=== PATIENT | female | born 1980 | race Caucasian/White ===

== ENCOUNTER 2017-09-21 15:36 | Inpatient (IN) ==
--- OUTSIDE RECORDS SUMMARY | 2017-09-21 16:14 | External Medical Summary | Summary of Care ---
:[address] [facility] Address [facility] , Encounter [facility] Date(s): 03/22/17 - 03/22/17 [facility] [address] [place] [id number] [place] [address] [phone] Discharge Disposition: Discharge to Home or Self-care OP Attending Physician: Hung Black Admitting Physician: Hung Black Problem List Condition Effective Dates Status Health Status Informant Obesity, unspecified(Confirmed)1 Active (Confirmed) 04/03/07 - 01/01/08 Resolved (Confirmed) 09/12/04 - 06/12/05 Resolved (Confirmed) 04/06/99 - 01/04/00 Resolved (Confirmed) 07/07/03 - 09/2003 Resolved (Confirmed) 06/08/97 - 03/22/98 Resolved (Confirmed) 08/02/16 Active 1Added based on documentation of BMI=55.9. Allergies, Adverse Reactions, Alerts Substance Reaction Severity Status Lortab Active Medications acetaminophen Start Date: 03/22/17 Status: Orderedmultivitamin Start Date: 03/22/17 Status: Ordered
--- OUTSIDE RECORDS SUMMARY | 2017-09-21 16:14 | External Medical Summary | CCD ---
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
--- OUTSIDE RECORDS SUMMARY | 2017-09-21 16:14 | External Medical Summary | Summary of Care ---
:1980 Author Organization [facility] Address [facility] , Encounter [facility] Date(s): 03/22/17 - 03/22/17 [facility] [address] [place] [id number] [place] [address] [phone] Discharge Disposition: Discharge to Home or Self-care OP Attending Physician: Wilda Rich Admitting Physician: Wilda Rich Vital Signs Most recent to oldest [Reference Range]: 1 Temperature Oral [96.4-99.1 DegF] 98.7 DegF (03/22/17 3:11 PM) Heart Rate [60-100 bpm] 94 bpm (03/22/17 3:11 PM) Resp. Rate [14-20 BRMIN] 16 BRMIN (03/22/17 3:11 PM) Blood Pressure [90-140/60-90 mmHg] 113/61 mmHg (03/22/17 3:11 PM) Oxygen Therapy Room air (03/22/17 3:11 PM) Problem List Condition Effective Dates Status Health [...] Status: Orderedmultivitamin Start Date: 03/22/17 Status: Ordered Results Cytogenetics and Genetic Disease Most recent to oldest [Reference Range]: 1 Chromosome Study, Amniotic Fluid SEE REPORT *NA* (03/22/17 9:24 AM)
--- OUTSIDE RECORDS SUMMARY | 2017-09-21 16:14 | External Medical Summary | Summary of Care ---
:1980 Author Organization [facility] Address [facility] , Encounter [facility] Date(s): 03/22/17 - 03/22/17 [facility] [address] [place] [id number] [place] [address] [phone] Discharge Disposition: Discharge to Home or Self-care [...]
--- OUTSIDE RECORDS SUMMARY | 2017-09-21 16:14 | External Medical Summary | CCD ---
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
--- OUTSIDE RECORDS SUMMARY | 2017-09-21 16:14 | External Medical Summary | Continuity of Care Document ---
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 [facility] (disorder) and Clinics High risk Active 03/07/20 Problem 04/16/2017 Children&ap 17 os;s [facility] (finding) [facility] Maternal care Active 03/07/20 Problem 04/16/2017 Children&ap for fetus 17 os;s [facility] (disorder) [facility] Patient Active 07/20/20 Problem 04/16/2017 Children&ap currently 16 os;s [facility] (finding) and Clinics, [place] [facility] Obesity Active Problem 04/28/2017 Added based on [place] (disorder) documentation Medical of BMI=55.9. Centers Supervision of 04/21/2017 [place] elderly Medical multigravida, Centers third trimester 38 weeks 04/21/2017 [place] gestation of Medical Centers Other specified 04/28/2017 [place] diseases and Medical conditions Centers complicating , childbirth and the puerperium Elevated 04/28/2017 [place] blood-pressure Medical reading, Centers without diagnosis of hypertension Obesity 04/21/2017 [place] complicating Medical , Centers third trimester Morbid (severe) 04/28/2017 [place] obesity due to Medical excess calories Centers Body mass index 04/28/2017 [place] (BMI) 50-59.9 , Medical adult Centers Maternal care 04/28/2017 [facility] for low Medical transverse scar Centers from previous delivery Alteration in Active Problem 04/21/2017 Problem added [place] nutrition automatically Medical (finding) by system based Centers on documentation of Nausea Present, Bowel Sounds Absent, Malnutrition Screening, Unintentional Weight Change, and Pressure Ulcer Present Upon Admission. At risk of Active Problem 04/21/2017 [place] pressure sore Medical (finding) [facility] Pain (finding) Active Problem 04/21/2017 Problem added [place] automatically Medical by system based Centers on documentation of positive finding of pain. Acquired 04/28/2017 [place] absence of Medical other specified Centers parts of digestive tract 39 weeks 04/28/2017 [place] gestation of Medical Centers Maternal care 04/28/2017 [place] for breech Medical presentation, Centers not applicable or unspecified Anemia of the 04/28/2017 [place] puerperium Medical [facility] Allergy status 04/28/2017 [place] to narcotic Medical agent status Centers Obesity 04/28/2017 [place] complicating Medical childbirth Centers Single live 04/28/2017 [facility] [place] [facility] Labor and 04/28/2017 [place] delivery Medical complicated by [facility] cord around neck, without compression, not applicable or unspecified Maternal care 04/28/2017 [place] for (suspected) Medical Centers abnormality and damage, unspecified, not applicable or unspecified Bereavement, Active Problem 04/28/2017 [place] life event Medical (finding) [facility] Medications Medication Details Route Status Patient Ordering Order Source Instructions Provider Date multivitamin Active [place] [facility] Acetaminophen Active [facility] Acetaminophen
</ Active [facility] 325 MG / br>1 tab, Medical Oxycodone PO, Q4H, PRN [facility] Hydrochloride 5 for pain, # 40 MG Oral Tablet tab, 0 [Percocet Refill(s) 5/325] multivitamin,
</ Active [place] br>1 tab, Medical Chewed, Daily, [facility] Multivitamins # 30 tab, 5 oral tablet, Refill(s) chewable ibuprofen 800
</ Active [place] mg oral tablet br>=800 mg, Medical 1 tab, PO, Q8H, Centers # 30 tab, 5 Refill(s) docusate-senna
</ Active [facility] 50 mg-8.6 mg br>1 tab, Medical oral tablet PO, BID, # 60 Centers tab, 5 Refill(s) ferrous sulfate
</ Active [place] 325 mg oral br>1 tab, Medical tablet PO, Daily, # 30 [facility] tab, 5 Refill(s) Normal Saline
</ Active [place] 50 mL IVPB br>25 mL, Medical Flush injection, As Centers Needed, IVPush, PRN Flush, Start date 04/19/17 15:44:00 Percocet
</ Active [place] br>2 tab, Medical tab, Q4H, PO, Centers PRN Pain Severe (7-10), Start date 04/19/17 13:53:00<br& gt;</br>N otes: Not to exceed 4000 mg of acetaminophen TOTAL in 24 hours. TIME CRITICAL MED IF SCHEDULED magnesium
</ Active [facility] citrate br>300 mL, Medical liquid, ONCE, [facility] PO, PRN Constipation, Start date 04/20/17 9:00:00, morning of postop day 1 Simethicone
</ Active [facility] br>80 mg,=1 Medical tab, tablet, Centers chewable, Q6H, PO, PRN Gas/Gas pain, Start date 04/19/17 13:53:00 Docusate
</ Active [place] br>100 mg,=1 Medical cap, cap, BID, Centers PO, Start date 04/19/17 17:00:00, when tolerating regular diet Ibuprofen
</ Active [facility] br>800 mg,=1 Medical tab, tab, Q8H, Centers PO, Start date 04/19/17 17:00:00<br& gt;</br>N otes: SHOULD TAKE WITH FOOD TIME CRITICAL MED IF SCHEDULED [place] Judy
</ Active [facility] br>1 APL, Medical pad, As Needed, Centers Topical, PRN Hemorrhoids, Start date 04/19/17 13:53:00, May keep at bedside<br&g t;</br>No mateusz: Apply patient addressograph sticker to outside of container if no patient label is attached by pharmacy. zolpidem
</ Active [facility] br>5 mg,=1 Medical tab, tab, QHS, Centers PO, PRN Insomnia, Start date 04/19/17 13:53:00 lanolin topical
</ Active [place] br>1 APL, Medical ointment, As Centers Needed, Topical, PRN Other, See Notes, Start date 04/19/17 13:53:00, For nipple tenderness<b r></br&gt ;Notes: Found in supply pyxis at Magnesium
</ Active [facility] Hydroxide br>30 mL, Medical suspension, Centers Daily, PO, PRN Constipation/In digestion, Start date 04/19/17 13:53:00, 2,400 mg Allergies, Adverse Reactions, Alerts Substance Category Reaction Severity Reaction Status Date Comments Source type Reported Acetaminophen / Assertion Drug [facility] Hydrocodone allergy Medical Centers Immunizations Immunization Date Given Site Status Last Comments Source Updated MMR 04/22/2017 Left Upper MMR Tico [place] Arm (measles/mumps Medical /rubella) [facility] No data available No data [place] for this section available for Medical this section [facility] Results Order Name Results Value Reference Date Interpretation Comments Source Range Psychology Psychology 04/23 [place] Therapy Therapy /2016 Hospital Note Patient: SHEILA FREEMAN [place] Age: 37 years Sex: Female : 76 Associated Diagnoses: None Author: Tasneem Alcaraz Visit Information Referral source: Treatment team. Consultation Start Time: 04/23/17 15:00:00. Consultation End Time: 04/23/17 15:30:00. Objective Mrs. Freeman is a 37 y.o. female. Treatment team requested psychology consultation for loss, resulting in emotional distress and evading hospital discharge. Sister in law and Pt&apo s;s teenage daughter were in the room. Clinician provided emotional support. Clinician encouraged the expression of thoughts and feelings. Clinician educated Pt on grief process. Pt was tearful and gabriella ed baby pictures with clinician. Clinician suggested to follow up with [facility] in [place]. Pt seems to have strong family support system (, 4 children) . Pt become irritated when clinician addressed d ischarge. She stated, "I'm not ready".. "I will call my nurse when I'm ready." She told clinician to leave the room. Clinician provided feedback to staff and was informed that Pt had until 4: 30 PM for discharge. Clinician visited Pt for the second time and gently indicated timeframe for discharge in order to warn and prepare with the process of letting go of baby. Pt asked the clinician to leave the room and stated that she was "saying goodbye." Pt, daughter , and baby were sitting in bed embracing each other in preparation for saying goodbye. Clinician informed OB-DERMATOLOGICAL SURGEON residents and nurse. Assessment and Plan Plan: Diagnosis: Discharge Discharge 04/23 [place] Summary Summary /2016 [facility] Patient: SHEILA FREEMAN [facility]: [id number] [place] Age: 37 years Sex: Female : 76 Associated Diagnoses: None Author: Gregg Morales OB Discharge Summary Date of Admission: 04/19/17 Date of Discharge: 04/22/17 Admitting Diagnosis: 1. IUP at 39 0/7 () 2. h/o CS x4 3. 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 Class III obesity (BMI 59) 5. H/o wound infection in 1st c/s 6. History of transfusion x2 7. Multiple abdominal surgeries including incisional hernia x2 with mesh Discharge Diagnosis: 1. S/p rLTCS of viable female 2. As above. Consultations: Anesthesia, NICU Principal Procedure Preformed: rLTCS Brief Hospital Course: Ms Freeman is a 37 y.o. at 39 0/7 () who was admitted without complaint for scheduled rLTCS. FHT was reassuring and she was admitted for surgery. 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 P atient was GBS negative. Discussed recommendation to proceed with section for delivery due to h/o CS x4. Patient underwent a repeat LTCS on 04/19/17 without complications and EBL 800 ml. Infant had Apgars of 4 at 1 minute, 5 at 5 minutes, and 8 at 10 minutes , weighing 2810 g. Cord gases were arterial pH 7 .257, and venous pH 7.326. Please see delivery summary for full details. Patient's course was uncomplicated. On POD#1, she had a Hgb mg/dL 11.2. On POD#3, the infant . Also on POD#3 patient was meeting all goals; ambulating without dif ficulty, appropriate urine output, positive flatus, tolerating diet, minimal lochia, and pain was controlled. Patient desires depo provera for control, which she received prior to discharge. Incision was CDI without erythema/induration on the day of discharge. Patient was discharged to home on POD#3. T99.2, HR80, RR19, BP121/67 General: NAD CV: RRR Lungs: CTABL. Abd: S/N/ND BSX4, FF below umbilicus. Ext: neg c/c/e, Incision: c/d/i, horacio in place, provena overlying, lower edge rolling up (consider replacing). Discharge Instructions: 1) Pelvic Rest for 6 weeks; no sex, tampon use, or douching 2) No heavy lifting greater than baby or carseat for 4-6 weeks 3) Return to clinic in 1 week for incision check and 6 week visit 4) Return for temperature >100.4 degrees, vaginal bleeding greater than 2 maxi pads in 1 hour over 4 hours, abdominal pain, intractable nausea or vomiting, headaches that don't go away with saranya tment, spots in your vision, chest pain/shortness of breath or other concerns. 5) Keep all follow up appointments. Discharge Medications: 1) Pericolace 8.6-50 mg PO BID PRN constipation 2) Ibuprofen 600 mg PO q6hr PRN pain 3) PNV PO once daily 4) FeS04 325mg PO once daily 5) Percocet 5/325 mg PO q4hr PRN pain 6) Depo provera 150 mg IM q 3 months Gregg Morales MD PGY1 Staff: Dr. Heard Agree with above note. Ross Heard MD Inpatient Inpatient 04/23 [place] Progress Progress /2016 Hospital Note Note Patient: SHEILA FREEMAN [place] Age: 37 years Sex: Female : 76 Associated Diagnoses: None Author: Gregg Morales LTCS note S- Awake on entry. Laying in bed. Baby baby (Aviana) laying on chest. Baby on 04/22. Denies n/v/d/cp/sob/leg pain. Pain controlled. +UO. + Flatus, tolerating PO. +ambulation. Lochia wnl. O- T99.2, HR80, RR19, BP121/67 General: NAD CV: RRR Lungs: CTABL. Abd: S/N/ND BSX4, FF below umbilicus. Ext: neg c/c/e, Incision: c/d/i, horacio in place, provena overlying, lower edge rolling up (consider replacing). A/P: 1. POD #4, s/p LTCS-routine care, infant on hospice care (T18) 2. Contraception: s/p depo-provera 3. Hb.2 (11.8), stable 4. Rubella: Nonimmune, MMR PP 5. Blood type: A pos/Ab- 6. Class III obesity (BMI 59) -Consider bariatric referal -Advised weight loss 7. Consult psychology 8. Remove provena at incision check. Gregg Morales MD PGY1 Staff: Dr. Velasquez Rich Discharge Discharge 04/22 [place] Summary Summary /2016 Hospital Patient: SHEILA FREEMAN [place] Age: 37 years Sex: Female : 78 Associated Diagnoses: None Author: Gregg Morales OB Discharge Summary Date of Admission: 04/19/17 Date of Discharge: 04/22/17 Admitting Diagnosis: 1. IUP at 39 0/7 (d/18) 2. h/o CS x4 3. 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 Class III obesity (BMI 59) 5. H/o wound infection in 1st c/s 6. History of transfusion x2 7. Multiple abdominal surgeries including incisional hernia x2 with mesh Discharge Diagnosis: 1. S/p rLTCS of viable female 2. As above. Consultations: Anesthesia, NICU Principal Procedure Preformed: rLTCS Brief Hospital Course: Ms Freeman is a 37 y.o. at 39 0/7 (d/) who was admitted without complaint for scheduled rLTCS. FHT was reassuring and she was admitted for surgery. 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 P atient was GBS negative. Discussed recommendation to proceed with section for delivery due to h/o CS x4. Patient underwent a repeat LTCS on 5/17 without complications and EBL 800 ml. had Apgars of 4 at 1 minute, 5 at 5 minutes, and 8 at 10 minutes , weighing 2810 g. Cord gases were arterial pH 7 .257, and venous pH 7.326. Please see delivery summary for full details. Patient's course was uncomplicated. On POD#1, she had a Hgb mg/dL 11.2. On POD#3, the . Also on POD#3 patient was meeting all goals; ambulating without dif ficulty, appropriate urine output, positive flatus, tolerating diet, minimal lochia, and pain was controlled. Patient desires depo provera for control, which she received prior to discharge. Incision was CDI without erythema/induration on the day of discharge. Patient was discharged to home on POD#3. T99.2, HR80, RR19, BP121/67 General: NAD CV: RRR Lungs: CTABL. Abd: S/N/ND BSX4, FF below umbilicus. Ext: neg c/c/e, Incision: c/d/i, horacio in place, provena overlying, lower edge rolling up (consider replacing). Discharge Instructions: 1) Pelvic Rest for 6 weeks; no sex, tampon use, or douching 2) No heavy lifting greater than baby or carseat for 4-6 weeks 3) Return to clinic in 1 week for incision check and 6 week visit 4) Return for temperature >100.4 degrees, vaginal bleeding greater than 2 maxi pads in 1 hour over 4 hours, abdominal pain, intractable nausea or vomiting, headaches that don't go away with saranya tment, spots in your vision, chest pain/shortness of breath or other concerns. 5) Keep all follow up appointments. Discharge Medications: 1) Pericolace 8.6-50 mg PO BID PRN constipation 2) Ibuprofen 600 mg PO q6hr PRN pain 3) PNV PO once daily 4) FeS04 325mg PO once daily 5) Percocet 5/325 mg PO q4hr PRN pain 6) Depo provera 150 mg IM q 3 months Gregg Morales MD PGY1 Staff: Dr. Heard Inpatient Inpatient 04/22 [place] Progress Progress /2017 Hospital Note Note Patient: SHEILA FREEMAN [place] Age: 37 years Sex: Female : 76 Associated Diagnoses: None Author: Gregg Morales LTCS note S- Awake on entry. Laying in bed. Baby passed over night. Denies n/v/d/cp/ sob/leg pain. Pain controlled. +UO. + Flatus, tolerating PO. +ambulation. Lochia wnl. O- T98.7, HR92, RR20. BP146/74 General: NAD CV: RRR Lungs: CTABL. Abd: S/N/ND BSX4, FF below umbilicus. Ext: neg c/c/e, Incision: c/d/i, horacio in place, provena overlying A/P: 1. POD #3, s/p LTCS-routine care, infant on hospice care (T18) 2. Contraception: s/p depo-provera 3. Hb.2 (11.8), stable 4. Rubella: Nonimmune, MMR PP 5. Blood type: A pos/Ab- 6. Class III obesity (BMI 59) -Consider bariatric referal -Advised weight loss 7. Consult psychology 8. Remove provena at incision check. Gregg Morales MD PGY1 Staff: Dr. Heard Patient seen and examined and management discussed with resident team. she is in bed, patting baby, who is , and resting on her chest. Wound dressing with Prevena intact. Advised to wear tight fitting bra to decrease engorgement. appropriate grief. Ross Heard MD Inpatient Inpatient 04/21 [place] Progress Progress /2016 Hospital Note Note Patient: SHEILA FREEMAN [place] Age: 37 years Sex: Female : 78 Associated Diagnoses: None Author: Gregg Morales LTCS note S- Awake on entry. Had just showered. Denies n/v/d/cp/sob/leg pain. Pain controlled. +UO. + Flatus, tolerating PO. +ambulation. Lochia wnl. O- T97.8, HR91, RR22, BP125/73 General: NAD CV: RRR Lungs: CTABL. Abd: S/N/ND BSX4, FF below umbilicus. Ext: neg c/c/e, Incision: c/d/i, horacio in place, provena overlying A/P: 1. POD #2, s/p LTCS-routine care, demise 2/ T18 2. Contraception: s/p depo-provera 3. Hb.2 (11.8), stable 4. Rubella: Nonimmune, MMR PP 5. Blood type: A pos/Ab- 6. Class III obesity (BMI 59) -Consider bariatric referal -Advised weight loss 7. Consult psychology Gregg Morales MD PGY1 Staff: Dr. Eduard Chapa MD FACOG Attending TAFE LECTURER Anesthesia Anesthesia 04/20 [place] Note Note /2016 [facility] Patient: SHEILA FREEMAN [place] Age: 37 years Sex: Female : 78 Associated Diagnoses: None Author: Reji Lobo Review of Systems VS/Measurements Vital Signs 04/20/17 07:26 Temperature Oral 98.9 DegF Heart Rate 89 bpm Resp. Rate 16 BRMIN Systolic BP 100 mmHg Diastolic BP 53 mmHg LOW Mean Arterial Pressure 69 mmHg BP Site Right Arm Cuff Size Adult Large Cuff Oxygen Therapy Room air Assessment Airway Status Awake and Alert and able to participate in the interview. Pain Assessment Pain Score (0-10) 2. PONV No PONV. Summary Tolerating PO. No apparent anesthetic complications. Block Resolved - Ambulating without difficulty. Hematology Gran 10.8 1.4 - 04/20 [facility] 10^3/cmm 7.010 [facility] Inpatient Inpatient 04/20 [facility] Progress Progress /2016 Hospital Note Note Patient: SHEILA FREEMAN [place] Age: 37 years Sex: Female : 78 Associated Diagnoses: None Author: Gregg Morales LTCS note S- Pt holding baby in bed. Denies n/v/d/cp/sob/leg pain. Pain controlled. +UO. + Flatus, tolerating PO. +ambulation. Lochia wnl. O- Temperature 98.9 (08:17) Systolic Blood Pressure 100 (08:17) Diastolic Blood Pressure 53 (08:17) Pulse 89 (08:17) SpO2 No result Respiratory Rate 16 (08:17) General: NAD CV: RRR Lungs: CTABL. Abd: S/N/ND BSX4, FF below umbilicus. Ext: neg c/c/e, Incision: c/d/i, horacio in place, provena overlying A/P: 1. POD #1, s/p LTCS-routine care, demise 2/2 T18 2. Contraception: Considering depo-provera 3. Hb.2 (11.8), stable 4. Rubella: Unknown 5. Blood type: A pos/Ab- 6. class III obesity (BMI 59) -Consider bariatric referal -Advised weight loss Gregg Morales MD PGY1 Staff: Dr. Mayen _x_ I reviewed the records with the resident and agree and directed the plan of care at the time of the visit (Levels 1 to 3). Assessment/Plan: Agree with plan of care as above. Haja Mayen MD Error above: While the baby does have T18, there is no demise at this time. Baby living as off my exam at 14:00. Haja Mayen MD Chemistry GFR Non null >=60 04/19 [facility] -Amer mL/min/1. [place] [id number] Centers Urine U Protein 9.0 mg/dL 0.0 - 10.0 04/19 [facility] Chemistry /2017 Medical Centers Operative Operative 04/19 [place] Reports Reports /2016 Hospital Patient: SHEILA FREEMAN [place] Age: 37 years Sex: Female : 76 Associated Diagnoses: None Author: Claudia Carranza SECTION OPERATIVE REPORT Date of Operation: Preoperative Diagnosis: 1. IUP at 39 0/7 () 2. h/o CS x4 3. 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 Class III obesity (BMI 59) 5. H/o wound infection in 1st c/s 6. History of transfusion x2 7. Multiple abdominal surgeries including incisional hernia x2 with mesh Postoperative Diagnosis: 1. S/p rLTCS of viable female infant 2. As above. Procedure: Repeat low-transverse section Findings: 1. Viable female infant in complete breech presentation, sacrum anterior position with 'S and weight pending. 2. Blood cord gases: Arterial pH 7.25, and Venous pH 7.32. 3. Minimal adhesive disease involving the fasica and rectus muscles. Moderate adhesive disease in the vesicouterine pouch. Minimal adhesive disease involving the adnexa. Complications: None. EBL: 800ml IVF: 1300ml UOP: 200ml Anesthesia: Combined spinal/epidural Specimens: Placenta and cord. Surgeon: Claudia Carranza MD PGY3 1st Lining Cleaner: Dr Dinorah Clark Staff physician: Dr Ana Rich Condition: Stable to recovery room. Indications: Ms Freeman is a 37 y.o. at 39 0/7 (d) who was admitted without complaint for scheduled rLTCS. FHT was reassuring and she was admitted for surgery. [facility] in [facility] c/b AMA s/p abnormal anatomy screening and amniocentesis on 03/22 demonstrating T18, XX , multiple cardiac anomalies, class III obesity (BMI 59), hx of LTCS x4 with wound infection in 1st c/s, history of trans fusion x2. Patient was GBS negative. Discussed recommendation to proceed with section for delivery due to h/o CS x4. The risks/benefits/ alternatives were discussed with the patient including b ut not limited to pain, bleeding, infection, damage to surrounding organs, or damage to baby, risk of anesthesia, to mother. Patient verbalized clear understanding and requested to proceed with section for delivery. Description of Procedure: The patient was taken back to the operating room where a combined spinal/ epidural was placed and found to be adequate. A thompson catheter and SCDs were in place prior to the beginning of the procedure. FH T were monitored until prep time. Antibiotics were given per protocol. After anesthesia was found to be adequate, the patient was prepped and draped in normal fashion in the dorsal position with a leftward tilt. Time out was performed. A pfannenstiel skin incision was made with a scalpel beneath her prior scar and carried down to the underlying layer of the fascia. The fascia was incised in the midline and this incision was extended l aterally with Mackay scissors. Charles clamps x2 were used to elevate the superior edge of the fascial layer. The fascia was tented up and the rectus muscle was dissected from the overlying layer of the fa scia using blunt and sharp dissection. The Charles clamps were then moved to the inferior edge of the fascia, which was tented up and the underlying rectus muscles were dissected off using sharp and blun t dissection. The rectus muscles were in the midline and laterally retracted. Blunt dissection was then used to enter the peritoneum above the level of the bladder. The peritoneal incision was extended bilaterally in a blunt fashion. Peritoneal bands were taken down sharpley. Bladder blade was then inserted. Moderate adhesive disease was noted between the bladder and lower uterine segment, w hich was carefully dissected sharply. Uterine incision was then made with the scalpel in the lower uterine segment in a curvilinear fashion and extended in a cephalocaudad fashion manually. The breech w as found in a complete position. Feet were grasped and were elevated to and through the hysterotomy. Legs were fully delivered to the sacrum which was anterior. Towel then was used to hold the baby, and was delivered up to the scapulae. Each arm was then swept medially and delivered. Finally, via the MauriceauSmellieVeit maneuver, head was delivered atraumatically. The cord was clamped and cut a nd was passed off to awaiting pediatric team. Arterial and venous cord gases were collected. The placenta was delivered via manual extraction. Membranes were extracted with ringed forceps. The uterus was exteriorized and cleared of all clots and debris. The uterine incision was re-approximated with 0-vicryl in a running locked fashion for excellent hemostasis. Posterior of the uterus was cleared of all blood and clots with careful protection of the bowel underlying organs. Both tubes and ovaries appeared visually normal. The uterus was then returned to abdomen. The paracolic gutters wer e cleared of all clots and debris. The uterine incision was again visualized off tension and found to be hemostatic. Seprafilm was placed over the hysterotomy, and a second piece over the anterior porti on of the uterus. The underlying layer of the fascia and muscle bellies were examined and found to be hemostatic. The fascia was closed in a running fashion with 0-vicryl. Subcutaneous tissue was irriga andrés and found to be hemostatic and the skin was closed with horacio. Provena was then placed. The patient tolerated the procedure well. Sponge/lap/needle counts were correct x3. She was taken to the recovery room in stable condition. Dr Ana Rich was present for surgery. Claudia Carranza MD PGY3 Assessment Delivery Note Delivery staff Staff Surgeon: Reji Rich. INDUSTRIAL [employer] MANAGER/Peds: Present. Gestational Age: 39.0 weeks by dates. Internal Monitoring: No. Amnioinfusion: No. Induction / Augmentation: No. Pre-op Diagnosis Previous . Post-op Diagnosis Same as pre-op diagnosis. Procedure : Position -- Breech: complete, Anesthesia -- (epidural, spinal), See above. Findings Infant female: Delivery time: pending, Amniotic fluid clear, weight is pending, Apgars pending, Admitted to NICU, Cord blood gases obtained arterial, Nuchal cord x 2, injury/anomalies Yes, Abdominal wall defect. Placenta: manually extracted. Shoulder Dystocia: No. Estimated Blood Loss: 800 mL. Hemorrhage: No. Sponge/instrument/needle counts correct: Yes. Mom stable in recovery: Yes. I certify that I personally performed this procedure or that I was present and personally supervised the resident or fellow during the critical or rogers portions of this procedure. OP/Procedu OP/Procedure 04/19 [place] [facility] re Certificatio /2016 Hospital Certificat n Record Patient: SHEILA FREEMAN [place] ion Record Age: 37 years Sex: Female : 76 Associated Diagnoses: None Author: Claudia Carranza Assessment Operative/Procedure Certification Surgery Start Time Surgery start time: Times - Surgery Start . Pre-Op/Pre-Procedure Pre-Op Diagnosis: h/o CS x4. Scheduled Procedure: h/o CS x4. Procedure Notes Complications: None. Drain: None. Post-Op/Post-Procedure PostOp Diagnosis: h/o CS x4. PostOp Procedure: h/o CS x4. Findings: See full operative note. Wound Classification: Clean contaminated. Estimated Blood Loss: 800 mL. ASA Class: Class II. Anesthesia Type: regional. Specimens Removed: Placenta, cord blood, cord. Surgery/Procedure Staff Surgeon/Attending: Reji Rich. Resident/Fellow: Claudia Carranza 1st Lining Cleaner: Dinorah Clark Formal Report to be dictated by Claudia Carranza Blood Bank ABORH TYPE A POS 04/19 [place] Cumulativ /2016 [facility] Hematology MCV 81.0 FL 80.0 - 04/19 [facility] 100.0 [facility] Infectious HIV-1 Ag p24 Non-Reactive 04/19 [facility] Serology / Medical Molecular (04/19/17 8:52 AM) Centers Testing Anesthesia Anesthesia 04/19 [place] Note Note /2016 [facility] Patient: SHEILA FREEMAN [place] Age: 37 years Sex: Female : 76 Associated Diagnoses: None Author: Chicho Macias Preoperative Information Performing Pre-Op Personnel: Dinorah Hill Shomber, Tia, 04/19/17 06 :15:00, 04/19/17 09:47:00. Anesthesia Preop Information: Time patient last ate or drank: 04/18/17 23 :00:00, Location scheduled: [facility], Anesthesiologist scheduled: Chicho Macias, Date/ Time scheduled: 04/19/17 10:00:00. Scheduled Procedure: CS. Preoperative Diagnosis: Repeat C/S. Histories Problem List: Include past medical history All Problems Obesity, unspecified / ICD-10-CM E66.9 / Confirmed Added based on documentation of BMI=55.9. / SNOMED CT 114664633 / Confirmed Resolved: / SNOMED CT 345323925 Resolved: / SNOMED CT 217147861 Resolved: / SNOMED CT 967880695 Resolved: / SNOMED CT 496664925 Resolved: / SNOMED CT 309426746 Procedure history: No active procedure history items have been selected or recorded., GALLBLADDER REMOVAL CS X 4 Anesthesia History: Patient History: NAUSEA WITH PREVIOUS CS, Family History negative Social History: Alcohol use: Denies use, Tobacco use: Denies use, Drug use : Denies use Health Status Day of surgery: Medications taken day of surgery: None Current medications: (Selected) Documented Medications Documented acetaminophen: multivitamin : Allergies: Allergic Reactions (Selected) Severity Not Documented Lortab- No reactions were documented. VS/Measurements Bariatric Measurements : Bariatric View 04/16/17 10:46 Weight 172 kg Height 170 cm Body Mass Index 59.5 kg/m2 04/16/17 08:32 Weight 171.2 kg Height 170 cm Body Mass Index 59.2 kg/m2 , No qualifying data available Review of Systems Airway: Normal neck range of motion. Mallampati classification: III. Thyromental distance: >=3FB. Temporomandibular joint mobility: Good. Mouth: Teeth ( POOR DENTITION ). Respiratory: Negative. Obstructive Sleep Apnea: CONNOR Screening ( BMI > 35 ). Anesthesia Physical Exam: Lungs CTA, Non-labored respirations. Cardiovascular: Negative. Functional Capacity: >=4 METS. Anesthesia Physical Exam: Regular rhythm. Gastrointestinal/Hepatic: Reflux/Heartburn/Indigestion: Uncontrolled. Renal/Endocrine: Negative. Neuromuscular/Neurologic: Negative. Javed/ Oncology: Anemia. Obstetrics: 03/22/17 AMNIOCENTESIS. UC04/19/2017, Positive. : 5. Review / Management Results review Plan Anesthetic Preoperative Plan: Anesthesia: General, ETT, Epidural, and SAB. Consent: Anesthesia plan, risks and benefits discussed. Risks discussed but not limited to N/V, H/A, sore-throat, dental injury and other serious complication. See separate signed consent. Questions ans wered. Informed consent given. ( Consent given by ( patient ) ). [place] [employer]esthesiologists#(ASA) physical status classification : Class IV. Attestation: At 04/19/17 09:52:00 I reviewed and updated the patient& apos;s medical history, including anesthesia, drug and allergy history; and interviewed and examined the patient.. History History and 04/19 [place] and Physical /2016 [facility] Physical Patient: SHEILA FREEMAN [place] Age: 37 years Sex: Female : 76 Associated Diagnoses: None Author: Claudia Carranza History of Present Illness EDC: 04/26/17 HPI: Pt is a 37 y/o @ 39 0/7 () presents without complaint for scheduled repeat section. Denies ctx, LOF, VB, dysuria, N/V; +FM Denies harmon/ruq pain/scotoma. PNC in [facility] c/b AMA s/p abnormal anatomy screening and amniocentesis on 03/22 demonstrating T18, XX, multiple cardiac anomalies, class III obesity (BMI 59), hx of LTCS x4 with wound infection in 1st c/s, history of transfusion x2 PNL: A+/-, RNI, HIVNR, RPRNR, G/C neg, pap NIL, 1hr OGT 113, GBS neg PMH: Class III obesity, blood transfusion x 2 OBHx: -G1- 98, 41wks, 4252g, LTCS, patient had significant wound infection and received blood transfusion, pfannenstiel incision -G2- 00, 39wks, 4139g, LTCS, vertical midline incision, uncomplicated -G4- 05, 39wks, 4309. LTCS, vertical midline incision, uncomplicated -G5- 08, 39wk, 3572g, LTCS, vertical midline incision, uncomplicated -G6- current GynHx: - LMP , menarche 9, regular monthly menses, denies STDs , + history of abnormal pap in 2004, subsequently normal, last 2016 NIL/-HPV Soc: Denies alcohol, tobacco, ilicit drug use Fam: +DM II dad, no breast, uterine, ovarian, colon or pancreatic cancers. No bleeding or clotting disorders Meds: PNV, tylenol prn Allergies: lortab (rash, N/V) Vitals: 97.8, 102, 18, 151/78 Gen: NAD Heart: RRR Lungs: CTA b/l Neuro 2/4 DTRs, no clonus Abd: Morbidly obese, NTTP. Erythematous 1cm wound in the RUQ (s/p amnio). Midline vertical incision (infraumbilical to suprapubic) well healed. Well healed pfannenstiel incision. Ext: no c/c/e FHT: 130s/mod tamika/+accels/-decels TOCO: Quiet Labs Pending. A/P: IUP @ 39 0/7 (d/) 1) h/o CS x4, incisional herniorraphy w/ mesh x2, cholecystectomy, appendectomy: - Plan to proceed with rLTCS via pfannenstiel incision, given mesh in midline incision. Declines BTL at this time. Reviewed R/B/A to multiple CS including but not limited to abnl placentation, uterine r upture, need for hysterectomy, need for transfusion, damage to surrounding organs, wound infection, need for additional procedures, in addition to risks reviewed below. Patient expressed understanding and desires to proceed. - placenta posterior on US - Given anticipation of a difficult procedure, will discuss with anesthesia need for CSE or other long acting anesthesia. - General surgery aware of patient in case of need for intraoperative consult. - Priorly requested operative reports from prior surgeries, awaiting arrival. 2. Trisomy 18 - patient s/p amniocentesis on 03/22/17 consistent with trisomy 18 - s/p anatomy and echo demonstrating multiple anomalies including hypoplastic L ventricle and mitral valve, double outlet right ventricle, large ASD and VSD, transposition of the great vessl es, mitral valve insufficiency, chest wall mass, enlarged cisterna magna, liver calcifications, single umbilical artery - last growth US on 03/07/17: EFW 1817g (35%), vtx, posterior placenta, TOVA 15, normal dopplers - patient has been counseled on poor prognosis with multple cardiac anomalies - s/p integrated consult on 04/15 with plans for patient to deliver at [facility] 2 /2 to complex surgical history and failed PAT testing - patient desiring intubation if necessary for mom to hold " Avyanna" and to meet her siblings but does not want any excessive meausres that may cause her additional pain. - possible plans for echo if stable following delivery, however patient has been counseled by pediatric cardiology that corrective surgeries are typically not encouraged for babies with Trisomy 18 3. Elevated BP - BP mild range - patient denies pre E symptoms - denies prior history of HTN outside of - CBC/CMP/UPC pending 4. Class III Obesity - 1hr OGT wnl - consider bariatrics referal post - encourage weight loss post 5. RNI - plan for MMR post 6. GBS neg Risks of Section discussed including risk of pain, bleeding, infection, damage to internal organs, damage to baby, to baby, to mother, and risks of anesthesia. Possible need for and risks of a blood transfusion discussed with pt including transfusion reaction or transmission of an infection such as HIV or Hepatitis. Patient verbalized understanding, questions were answered and consents signed. MD Margarita PGY3 Seen and discussed with Max Batista and Eduardo Anesthesia Anesthesia 04/19 [place] Note Note /2016 [facility] Patient: SHEILA FREEMAN [place] Age: 37 years Sex: Female : 78 Associated Diagnoses: None Author: Brandy Alejandre Preoperative Information Performing Pre-Op Personnel: Dinorah Hill Shomber, Tia, 04/19/17 06 :15:00, 04/19/17 09:47:00. Anesthesia Preop Information: Time patient last ate or drank: 04/18/17 23 :00:00, Location scheduled: [facility], Anesthesiologist scheduled: Chicho Macias, Date/ Time scheduled: 04/19/17 10:00:00. Scheduled Procedure: CS. Preoperative Diagnosis: Repeat C/S. Histories Problem List: Include past medical history All Problems Obesity, unspecified / ICD-10-CM E66.9 / Confirmed Added based on documentation of BMI=55.9. / SNOMED CT 985985123 / Confirmed Resolved: / SNOMED CT 029658606 Resolved: / SNOMED CT 871592833 Resolved: / SNOMED CT 915774524 Resolved: / SNOMED CT 642429111 Resolved: / SNOMED CT 421385711 Procedure history: No active procedure history items have been selected or recorded., GALLBLADDER REMOVAL CS X 4 Anesthesia History: Patient History: NAUSEA WITH PREVIOUS CS, Family History negative Social History: Alcohol use: Denies use, Tobacco use: Denies use, Drug use : Denies use Health Status Day of surgery: Medications taken day of surgery: None Current medications: (Selected) Documented Medications Documented acetaminophen: multivitamin : Allergies: Allergic Reactions (Selected) Severity Not Documented Lortab- No reactions were documented. VS/Measurements Bariatric Measurements : Bariatric View 04/16/17 10:46 Weight 172 kg Height 170 cm Body Mass Index 59.5 kg/m2 04/16/17 08:32 Weight 171.2 kg Height 170 cm Body Mass Index 59.2 kg/m2 , No qualifying data available Review of Systems Airway: Normal neck range of motion. Mallampati classification: III. Thyromental distance: >=3FB. Temporomandibular joint mobility: Good. Mouth: Teeth ( POOR DENTITION ). Respiratory: Negative. Obstructive Sleep Apnea: CONNOR Screening ( BMI > 35 ). Anesthesia Physical Exam: Lungs CTA, Non-labored respirations. Cardiovascular: Negative. Functional Capacity: >=4 METS. Anesthesia Physical Exam: Regular rhythm. Gastrointestinal/Hepatic: Reflux/Heartburn/Indigestion: Uncontrolled. Renal/Endocrine: Negative. Neuromuscular/Neurologic: Negative. Javed/ Oncology: Anemia. Obstetrics: 03/22/17 AMNIOCENTESIS. UC04/19/2017, Positive. : 5. Review / Management Results review Plan Anesthetic Preoperative Plan: Anesthesia: General, ETT, Epidural, and SAB. Consent: Anesthesia plan, risks and benefits discussed. Risks discussed but not limited to N/V, H/A, sore-throat, dental injury and other serious complication. See separate signed consent. Questions ans wered. Informed consent given. ( Consent given by ( patient ) ). [place] [employer] Anesthesiologists#(ASA) physical status classification : Class IV. Attestation: At 04/19/17 09:52:00 I reviewed and updated the patient& apos;s medical history, including anesthesia, drug and allergy history; and interviewed and examined the patient.. Urine Ur 109.8 mg/g 04/16 [facility] Chemistry Protein/Crea [facility] t Ratio [facility] Chemistry Chloride 101 mmol/L 95 - 105 04/16 [facility] Blood Bank ABORH TYPE A POS 04/16 [place] Cumulativ [facility] Hematology Baso % 0.1 % 0.0 - 2.0 04/16 [facility] B Streptococ 04/16 [place] [facility] strep screen cus [facility] B screen [facility] negative Point Of Urine Negative Negative 04/16 [facility] Leukocyte Medical Esterase POC (04/16/17 8:47 AM) [facility] Procedure Procedure 03/22 [place] Report Report /2016 [facility] Patient: SHEILA FREEMAN [place] Age: 37 years Sex: Female : 78 Associated Diagnoses: None Author: Erick Birch Procedure: Ultrasound-guided Amniocentesis. Performed by/Supervising Physician: Hung Black M.D. Lining Cleaner Physician: Erick Birch M.D. Indication: Increased Risk of T18. Preparation and technique: Informed consent obtained. The patient was counselled on the risks and benefits of the procedure. We discussed risks of bleeding, infection, labor, rupture of membranes, and even . All questions were answered and the pt agreed with the plan of care. Skin prepped (in usual sterile fashion, with povidone iodine), position supine. The patient was laid in supine po sition with slight elevation of her head. An adequate pocket of amniotic fluid was located via ultrasound guidance just superior and to the right of the umblicus. The patient's abdomen was prepped and draped in sterile fashion. With one pass, in a perpendicular fashion to the uterus in the previously identified area under ultrasound guidance, a 22 gauge amniocentesis needle was placed and approx imately 30 cc of clear amniotic fluid was withdrawn. cardiac activity was confirmed by ultrasound immediately following procedure, 148 bpm. Mother and fetus tolerated the procedure well. Procedure tolerated: Well Specimen: Amniotic Fluid specimen sent to [facility] lab for cytogenetics. Complications: None Blood Type: Rh+. Erick Birch M.D. Cytogeneti Chromosome SEE REPORT 03/22 Subhash cs and Study, Medical Genetic [facility] Disease Fluid Mole Gen Mole Gen MolGen 03/08 NA This order is Children[facility] cfDNA Scr cfDNA Scr Case /2016 for pos;s Created collection [facility] only. The [facility] Genetics case will be created seperately.&l t;br/> Health 03/07 [facility] Letter /2016 pos;s [facility] Health 03/07 [facility] Ultrasound pos;s [facility] Molecular Molecular 03/07 [facility] Genetics Genetics /2016 pos;s Send Outs Send Outs [facility] Molecular Molecular Blood 03/07 Electronically signed by: Mohit Chaves 03/18/2017 10:05 [facility] Genetics Genetics SO pos;s SO Final Final Report [facility] [id number] Cell-free DNA analysis for screening for genome-wide copy number variants [id number] POSITIVE: INCREASED RISK FOR TRISOMY 18 sex Female Fraction 11% Analysis of cell-free DNA showed an increased amount of chromosome 18 material (trisomy 18). This specimen showed an expected representation of chromosomes 21 and 13 material. In addition, the following microdeletions were not detected for the current : 22q11 (DiGeorge) 15q11 (Prader-Willi / Angelman) 11q23 (Dillon) 8q24 (Helga-Giedion) 5p15 (Cri-du-Chat) 4p16 (Zee-Hirschhorn) 1p36 A positive test result does not definitively confirm the presence of chromosomal abnormalities. If definitive diagnosis is desired, chorionic villus sampling or amniocentesis is necessary. Please see scanned report for further interpretation and recommendations. Genetic counseling is recommended. Testing was performed by [facility] in [place], [place]. The original report is available upon request and in Powerchart, found under " Laboratory Documents: Lab Reports: Reference Lab Resul ts," filed under the date the order was received (03/07/2017). Electronically signed by: Mohit Chaves 03/18/2017 10:05</br> Vital Signs Vital Sign Value Date Comments Source Temperature Oral 97.9 [degF] 04/23/2017 [facility] Systolic BP 134 mmHg 04/23/2017 [facility] Diastolic BP 74 mmHg 04/23/2017 [facility] Oxygen Therapy Room air 04/23/2017 [facility]
</ Centers br>(04/23/17 8:00 AM) BP Site Right Arm 04/23/2017 [facility]
</ Centers br>(04/23/17 8:00 AM) Heart Rate 86 bpm 04/23/2017 [facility] Resp. Rate 18 BRMIN 04/23/2017 [facility] Mean Arterial 94 mmHg 04/23/2017 [facility] Pressure Centers Mean Arterial 85 mmHg 04/23/2017 [facility] Pressure Centers Systolic BP 121 mmHg 04/23/2017 [facility] Diastolic BP 67 mmHg 04/23/2017 [facility] Cuff Size Adult Large 04/23/2017 [facility] Cuff Centers
</ br>(04/22/17 7:39 PM) Temperature Oral 99.2 [degF] 04/23/2017 [facility] Resp. Rate 19 BRMIN 04/23/2017 [facility] Heart Rate 80 bpm 04/23/2017 [facility] Oxygen Therapy Room air 04/23/2017 [facility]
</ Centers br>(04/22/17 7:39 PM) BP Site Right Arm 04/23/2017 [facility]
</ Centers br>(04/22/17 7:39 PM) Cuff Size Adult Large 04/22/2017 [facility] Cuff Centers
</ br>(04/22/17 1:18 PM) BP Site Right Arm 04/22/2017 [facility]
</ Centers br>(04/22/17 1:18 PM) Systolic BP 114 mmHg 04/22/2017 [facility] Diastolic BP 63 mmHg 04/22/2017 [facility] Mean Arterial 80 mmHg 04/22/2017 [facility] Centers Resp. Rate 18 BRMIN 04/22/2017 [facility] Temperature Oral 98.8 [degF] 04/22/2017 [facility] Oxygen Therapy Room air 04/22/2017 [facility]
</ Centers br>(04/22/17 1:18 PM) Heart Rate 87 bpm 04/22/2017 [facility] Cuff Size Adult Large 04/22/2017 [facility]
</ br>(04/22/17 7:48 AM) Oxygen Saturation 96 % 04/19/2017 [facility] Oxygen Saturation 95 % 04/19/2017 [facility] Systolic BP 126 mmHg 04/16/2017 [facility] Diastolic BP 67 mmHg 04/16/2017 [facility] Heart Rate 87 bpm 04/16/2017 [facility] Heart Rate 99 bpm 04/16/2017 [facility] Systolic BP 119 mmHg 04/16/2017 [facility] Diastolic BP 62 mmHg 04/16/2017 [facility] Heart Rate 90 bpm 04/16/2017 [facility] Systolic BP 127 mmHg 04/16/2017 [facility] Diastolic BP 73 mmHg 04/16/2017 [facility] Resp. Rate 16 BRMIN 04/16/2017 [facility] Oxygen Therapy Room air 04/16/2017 [facility]
</ Centers br>(04/16/17 10:34 AM) Temperature Oral 98.9 [degF] 04/16/2017 [facility] Cuff Size Adult Large 04/16/2017 [facility] Cuff Centers
</ br>(04/16/17 10:34 AM) BP Site Left Arm 04/16/2017 [facility]
</ Centers br>(04/16/17 10:34 AM) Cuff Size Adult Long Cuff 04/16/2017 [facility]
</ Centers br>(04/16/17 8:32 AM) BP Site Left Arm 04/16/2017 [facility]
</ Centers br>(04/16/17 8:32 AM) Systolic BP 147 mmHg 04/16/2017 [facility] Diastolic BP 92 mmHg 04/16/2017 [facility] Heart Rate 91 bpm 04/16/2017 [facility] Temperature Oral 97.7 [degF] 04/16/2017 [facility] Systolic BP 147 mmHg 04/16/2017 [facility] Diastolic BP 92 mmHg 04/16/2017 [facility] Oxygen Therapy Room air 03/22/2017 [facility]
</ Centers br>(03/22/17 3:11 PM) Systolic BP 113 mmHg 03/22/2017 [facility] Diastolic BP 61 mmHg 03/22/2017 [facility] Temperature Oral 98.7 [degF] 03/22/2017 [facility] Resp. Rate 16 BRMIN 03/22/2017 [facility] Heart Rate 94 bpm 03/22/2017 [facility] Encounters Location Location Encounter Encounter Reason Attending ADM DC Status Source Details Type Number For Provider Date Date Visit [facility] Non [id number] 03/01 03/01 Active [facility] Billable /2016 pos;s [facility] CLI [id number] Hung 03/07 03/07 Active [facility] Sofia /2016 pos;[facility] CLI [id number] Allison 03/22 03/22 Active [facility] Harshad /2016 pos;[facility] [id number] Hung 03/22 03/23 [facility] /2016 [facility] OB Triage [id number] Wilda 03/22 03/23 [facility] Rich /2016 [facility] CLI [id number] Martin 04/15 04/15 Active [facility] Rendon /2016 pos;[facility] [id number] Hung 04/16 04/17 [facility] OB Triage [id number] 04/16 04/17 [facility] /2016 [facility] OB [id number] 04/19 04/23 [facility] Inpatient /2016 [facility] Procedures Procedure Code Date Perfomer Comments Source No data available [facility] for this section Centers Assessment and Plan Assessment and Plan Date Source Title:Ambulatory Patient Education Author:Hung Black Date:04/16/17 [facility]. [facility] [address] [place] [address] Visit Information/Informacion de Visita Name/Nombre: SHEILA FREEMAN Date of /Fecha de Nacimiento: 1980 12:00 AM Visit Date/Fecha de Visita: 04/16/2017 7:30 AM Phys[facility] Provider/Proveedor de Clinica: Resident Provider: Valeria Fang Attending Provider: Hung Black This is the list of current medications in your medical record. It may include medications from visits to other areas of the hospital and medications you told us were prescribed by other doctors. If you have questions about any medications that were not prescribed from this clinic , please contact the doctor who prescribed them. Your Medications/Loren Medicamentos Here is a list of your medications/Aqu est lauren lista de loren medicinas. Medication/Strength Dose Route Frequency Indications/Special Instructions/Comments multivitamin (multivitamin ) acetaminophen (acetaminophen) If you haven't been contacted for an appointment within two weeks, please call for [facility] or for [place]. Additional Patient Information: Height: 5 ft 7 in Weight: 377 lb 7 oz Blood Pressure: 147/92 mmHg Future Orders Placed Today/Ordenes de Doctor Order Name Details Ordering Provider CAESAREAN SECTION Primary Procedure: Yes Primary Surgeon: Valeria Fang Surgical Procedure Text: x5 Anesthesia Type: SPINAL Surg Procedure duration: 0 Surg Setup Duration: 15 Surg Cleanup Duration: 15 Patient Follow-up Information/Informacion de seguimiento del paciente Your Upcoming Appointments/Loren proximas citas Please bring all home medications to every visit with us at [facility]. Your safety and education around medications is our goal. (Prescription , non prescription and herbal supplements) Date Time Location Appointment Type Provider 04/22/2017 08:00 am OB[facility] HH OB OR OB OR 1 Patient Instructions/Instrucciones para el Paciente All smokers are encouraged to stop smoking. If you would like help, talk to your doctor or call The [place] Tobacco Quitline at 4-703-FLCLNOW (7-978-436- 3264). If you have thoughts about committing suicide or otherwise hurting yourself, please call 911 or call Crisis Line at . Obesity Obesity is defined as having too much total body fat and a body mass index (BMI ) of 30 or more. BMI is an estimate of body fat and is calculated from your height and weight. BMI is typically calculated by your health care provider during regular wellness visits. Obesity happens when you consume more calories than you can burn by exercising or performing daily physical tasks. Prolonged obesity can cause major illnesses or emergencies , such as: Stroke. Heart disease. Diabetes. Cancer. Arthritis. High blood pressure (hypertension). High cholesterol. Sleep apnea. Erectile dysfunction. Infertility problems. CAUSES Regularly eating unhealthy foods. Physical inactivity. Certain disorders, such as an underactive thyroid (hypothyroidism), Perryton 's syndrome, and polycystic ovarian syndrome. Certain medicines, such as steroids, some depression medicines, and antipsychotics. Genetics. Lack of sleep. DIAGNOSIS A health care provider can diagnose obesity after calculating your BMI. Obesity will be diagnosed if your BMI is 30 or higher. There are other methods of measuring obesity levels. Some other methods include measuring your skinfold thickness, your waist circumference, and comparing your hip circumference to your waist circumference. TREATMENT A healthy treatment program includes some or all of the following: Long-term dietary changes. Exercise and physical activity. Behavioral and lifestyle changes. Medicine only under the supervision of your health care provider. Medicines may help, but only if they are used with diet and exercise programs. If your BMI is 40 or higher, your health care provider may recommend specialized surgery or programs to help with weight loss. An unhealthy treatment program includes: Fasting. Fad diets. Supplements and drugs. These choices do not succeed in long-term weight control. HOME CARE INSTRUCTIONS Exercise and perform physical activity as directed by your health care provider. To increase physical activity, try the following: Use stairs instead of elevators. Park farther away from store entrances. Garden, bike, or walk instead of watching television or using the computer. Eat healthy, low-calorie foods and drinks on a regular basis. Eat more fruits and vegetables. Use low-calorie cookbooks or take healthy cooking classes. Limit fast food, sweets, and processed snack foods. Eat smaller portions. Keep a daily journal of everything you eat. There are many free websites to help you with this. It may be helpful to measure your foods so you can determine if you are eating the correct portion sizes. Avoid drinking alcohol. Drink more water and drinks without calories. Take vitamins and supplements only as recommended by your health care provider. Weight-loss support groups, registered dietitians, counselors, and stress reduction education can also be very helpful. SEEK IMMEDIATE MEDICAL CARE IF: You have chest pain or tightness. You have trouble breathing or feel short of breath. You have weakness or leg numbness. You feel confused or have trouble talking. You have sudden changes in your vision. This information is not intended to replace advice given to you by your health care provider. Make sure you discuss any questions you have with your health care provider. Document Released: 12/26/2005 Document Revised: 12/09/2015 Document Reviewed: 09/05/2016 Company Interactive Patient Education 2016 [employer]. [facility] PETE Thayer CHRISTY have received and understand the attached patient education material and, if receiving medications, authorize the use of non- safety containers. YoPETE CHRISTY, he recibido los materiales de educacin / instrucciones para el paciente que se adjuntan, y comprendo lo que dicen estos materiales y, si he recibido medicamentos, autorizo el uso de envases sin tapa de seguridad. Patient/Guardian Signature Date Firma de paciente/guardian Fecha Witness Signature Date Firma de Testigo Fecha Take Charge of Your Health with [employer] Sign up today for [employer] for access to your health records 24/06. [facility] allows you to: Request an appointment Check your lab results Communicate with your providers and care team See provider notes from your visit View immunization records View current medication Sign up Today! Ask your healthcare provider or a [facility] associate for help, or email [email or web address]. [email or web address] hospitalealth [facility] complies with applicable Federal civil rights laws and does not discriminate on the basis of race, color, national origin, age, disability, or sex. ATENCIN: si joannla eseaol, tiene a white disposicin servicios gratuitos de asistencia lingstica. Llame al (TTY: ) (TTY: ) : . ( : ). [facility] Title:Pre-Anesthesia Assessment * Author:Chicho Macias Date:04/19/17 Plan Anesthetic Preoperative Plan: Anesthesia: General, ETT, Epidural, and SAB. Consent: Anesthesia plan, risks and benefits discussed. Risks discussed but not limited to N/V, H/A, sore-throat, dental injury and other serious complication. See separate signed consent. Questions ans wered. Informed consent given. ( Consent given by ( patient ) ). [place] [employer] Anesthesiologists#(ASA) physical status classification: Class IV. Attestation: At 04/19/17 09:52:00 I reviewed and updated the patient's medical history, including anesthesia, drug and allergy history; and interviewed and examined the patient.. [facility] Title:Operative/Procedure Certification * Author:Claudia Carranza Date:04/19 Assessment Operative/Procedure Certification Surgery Start Time Surgery start time: Times - Surgery Start . Pre-Op/Pre-Procedure Pre-Op Diagnosis: h/o CS x4. Scheduled Procedure: h/o CS x4. Procedure Notes Complications: None. Drain: None. Post-Op/Post-Procedure PostOp Diagnosis: h/o CS x4. PostOp Procedure: h/o CS x4. Findings: See full operative note. Wound Classification: Clean contaminated. Estimated Blood Loss: 800 mL. ASA Class: Class II. Anesthesia Type: regional. Specimens Removed: Placenta, cord blood, cord. Surgery/Procedure Staff Surgeon/Attending: Reji Rich. Resident/Fellow: Claudia Carranza 1st Lining Cleaner: Dinorah Clark Formal Report to be dictated by Claudia Carranza [facility] Title: OB Intraop Author:Tiffanie Gallardo Date:04/19/17 OB Intraop Summary Primary Physician: Reji Rich Finalized Date/Time: 04/19/17 17:39:59 Pt. Name: SHEILA FREEMAN/Sex: 1980 Female Med Rec #: [id number] Physician: Adalberto Martinez Financial #: [id number] Pt. Type: O Room/Bed: [facility]/ Admit/Disch: 04/19/17 08:51:00 - Institution: [facility] Case Times Entry 1 In Room Time 04/19/17 12:26:00 Start Time 04/19/17 13:01:00 Stop Time 04/19/17 13:45:00 Out Room Time 04/19/17 13:53:00 OB General Case Rehabilitation Therapist 1 Case Information OR OB OR Specialty DERMATOLOGICAL SURGEON ASA Class 3 Wound Class CLEAN-CONTAMINATED Case Level LEVEL 3 Was revision No associated with prior infection at the index joint? Is this a No non-elective, unscheduled operative procedure that doesn't allow for standard preoperative preparation? 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, XX, multiple cardiac anomalies, Class 3 obesity, OB Case Attendees Entry 1 Entry 2 Entry 3 Case Attendee Dinorah Clark , Brandy Zamora Role Performed RESIDENT SURGEON RESIDENT SURGEON SRNA Time In 04/19/17 12:55:00 04/19/17 12:55:00 04/19/17 12:26:00 Time Out 04/19/17 13:45:00 04/19/17 13:45:00 04/19/17 13:53:00 Procedure CAESAREAN SECTION(NA) CAESAREAN SECTION(NA) CAESAREAN SECTION(NA) Entry 4 Entry 5 Entry 6 Case Attendee Chicho Macias , Tiffanie Liz Role Performed ANESTHESIOLOGIST COLOR MAKER DYER RN TOOLMAKER HELPER Time In 04/19/17 12:26:00 04/19/17 12:26:00 04/19/17 12:26:00 Time Out 04/19/17 13:53:00 04/19/17 13:53:00 04/19/17 13:53:00 Procedure CAESAREAN SECTION(NA) CAESAREAN SECTION(NA) CAESAREAN SECTION(NA) Entry 7 Entry 8 Entry 9 Case Attendee Aline Santana , Radha Welch Role Performed RN TOOLMAKER HELPER 2 TEA LEAF READER PROPAGATOR LABORER Time In 04/19/17 12:26:00 04/19/17 12:26:00 04/19/17 13:00:00 Time Out 04/19/17 13:53:00 04/19/17 13:53:00 04/19/17 13:35:00 Procedure CAESAREAN SECTION(NA) CAESAREAN SECTION(NA) CAESAREAN SECTION(NA) Entry 10 Entry 11 Entry 12 Case Attendee Keisha Love , Sandra He Role Performed NURSE EXTRACTING MACHINE OPERATOR FELLOW PRACTITIONER Time In 04/19/17 13:00:00 04/19/17 13:00:00 04/19/17 13:00:00 Time Out 04/19/17 13:35:00 04/19/17 13:35:00 04/19/17 13:35:00 Procedure CAESAREAN SECTION(NA) CAESAREAN SECTION(NA) CAESAREAN SECTION(NA) Entry 13 Entry 14 Entry 15 Case Attendee Lauren Chang, Beto Romano Role Performed MEDICAL STUDENT PROPAGATOR LABORERCHIEF OF PRODUCTION RESIDENT Time In 04/19/17 13:00:00 04/19/17 13:00:00 04/19/17 13:00:00 Time Out 04/19/17 13:35:00 04/19/17 13:35:00 04/19/17 13:35:00 Procedure CAESAREAN SECTION(NA) CAESAREAN SECTION(NA) CAESAREAN SECTION(NA) Entry 16 Entry 17 Case Attendee Zi Lerner Richard R. Role Performed PEDIATRIC RESIDENT STAFF SURGEON Time In 04/19/17 13:00:00 04/19/17 13:00:00 Time Out 04/19/17 13:35:00 04/19/17 13:45:00 Procedure CAESAREAN SECTION(NA) CAESAREAN SECTION(NA) HH OB Surgical proc Entry 1 Scheduled Procedure CAESAREAN SECTION Primary Procedure Yes Staff Surgeon Reji Rich Modifiers NA Anesthesia Type SPINAL Surgical Service DERMATOLOGICAL SURGEON Start 04/19/17 13:01:00 Stop 04/19/17 13:45:00 Operative Procedure x5 Per Surgeon Is this case due to No a blunt or penetrating trauma? Was the entire No procedure performed via laparoscope or Robotic assistance? OB Entry 1 FHT n/a Incision Site Low Transverse OB Counts Pre-Care Text: X-Ray needed for incorrect count, no initial count, or 50 or more sponges Entry 1 Entry 2 Entry 3 Count Sequence INITIAL FIRST SECOND Completion Time of 04/19/17 12:35:00 04/19/17 13:24:00 04/19/17 13:30:00 Count Blades 2 2 2 [place] 3 3 3 Laps 20 20 20 Raytec 0 0 0 Misc Bovitip-1 Bovitip-1 Bovitip-1 Instrument Count Yes n/a Yes Completed All Counts Correct? Yes Yes Yes Persons Responsible Darby Dozier, Darby Dozier, Darby Dozier, for Counts: Tiffanie Gallardo Shelly M Monshower, Shelly M Action Taken For n/a n/a n/a Incorrect Count: Surgeon Notified of Yes Yes Yes Counts Sterile Indicators Yes n/a n/a Changed/Package Intact Entry 4 Count Sequence FINAL Completion Time of 04/19/17 13:35:00 Count Blades 2 [place] 3 Laps 20 Raytec 0 Misc Bovitip-1 Instrument Count n/a Completed All Counts Correct? Yes Persons Responsible Darby Dozier, for Counts: Tiffanie Gallardo Action Taken For n/a Incorrect Count: Surgeon Notified of Yes Counts Sterile Indicators n/a Changed/Package Intact OB Univeral Protocol Entry 1 Time Out Called? Yes Time of Time Out 04/19/17 12:57:00 Time Out Called By Tiffanie Gallardo Patient Verified? Yes Procedure Verified? Yes Correct Operative Yes Site Confirmed Correct Position? Yes Correct Implant and n/a Special Equipment? Correct n/a Radiographic Films? Operative Site Operative Site n/a Initialed? Operative Site n/a Initialed by? OB Positioning Entry 1 Body Position SUPINE Positioning Aid: FOAM HEAD CUSHION, RIGHT HIP WEDGE, ELECTRIC OR TABLE Right Arm Position ARMBOARD Left Arm Position ARMBOARD By Aquiles Henry Hartzell, Jaclyn L. Safety Strap THIGHS, BILATERAL Location SCD Yes SCD CE# n/a SCD Setting n/a OB Cautery Entry 1 Cautery CE # OB - [place] [id number] Coag Setting 35 Cut Setting 35 Bipolar Setting 1 Pad Location THIGH, RIGHT [place] Cautery No Pad Placed Under Patient Per Patient Position Skin Cond Before WARM, DRY, INTACT Skin Cond After WARM, DRY, INTACT Pad Applied By Aline Santana OB Skin Prep Entry 1 Prep Area ABDOMEN, THIGHS, BILATERAL, SUPRAPUBIC Prep Agents CHLORAPREP By Aline Santana Prep Inspected By Dinorah Clark Hair Removal Method CLIPPER Prep Solution n/a Contained and Dry prior to Draping Location hair Holding Area removal OB Dressings Entry 1 Entry 2 Type n/a prevena applied Quantity 1 n/a Location ABDOMEN ABDOMEN Immobilization n/a n/a Device OB Specimens/Cultures Entry 1 Description cord bloods Tests Requested JERRY/TYPE Disposition TO LAB Specimen No Verification Case Comments Finalized By: Tiffanie Gallardo Document Signatures Signed By: Tiffanie Gallardo 04/19/17 17:39 [facility] Title:OB Admission History and Physical Author:Claudia Carranza Date: Impression and Plan [facility] Family History Value Date Source Advance Directives Order Name Results Value Date Source
--- OUTSIDE RECORDS SUMMARY | 2017-09-21 16:14 | External Medical Summary | Summary of Care ---
:1980 Author Organization [facility] Address [facility] , Encounter [facility] Date(s): 04/16/17 - 04/16/17 [facility] [address] [place] [id number] [place] [address] [phone] Discharge Disposition: Discharge to Home or Self-care OP Attending Physician: Hung Black Admitting Physician: Hung Black Vital Signs Most recent to oldest [Reference Range]: 1 2 Temperature Oral [96.4-99.1 DegF] 97.7 DegF (04/16/17 8:32 AM) Heart Rate [60-100 bpm] 91 bpm (04/16/17 8:32 AM) Blood Pressure [90-140/60-90 mmHg] 147/92 mmHg 147/92 mmHg *HI* *HI* (04/16/17 8:32 AM) (04/16/17 8:07 AM) BP Site Left Arm (04/16/17 8:32 AM) Cuff Size Adult Long Cuff (04/16/17 8:32 AM) Problem List Condition Effective Dates Status Health [...] Orderedmultivitamin Start Date: 03/22/17 Status: Ordered Results Point Of Care-Glucose Most recent to oldest [Reference Range]: 1 Dock Builder ID [id number] *NA* (04/16/17 8:47 AM) Point Of Care Most recent to oldest [Reference Range]: 1 Urine Color POC [Yellow] Yellow (04/16/17 8:47 AM) Urine Clarity POC [Clear] Clear (04/16/17 8:47 AM) Urine Specific [place] POC [1.003-1.030] 1.015 (04/16/17 8:47 AM) Urine pH POC [4.5-8.0] 7.0 (04/16/17 8:47 AM) Urine Protein POC [Negative mg/dL] Negative mg/dL (04/16/17 8:47 AM) Urine Glucose POC [Negative mg/dL] Negative mg/dL (04/16/17 8:47 AM) Urine Ketones POC [Negative mg/dL] Negative mg/dL (04/16/17 8:47 AM) Urine Bilirubin POC [Negative] Negative (04/16/17 8:47 AM) Urine Blood POC [Negative] Negative (04/16/17 8:47 AM) Urine Urobilinogen POC [0.2 EU/dL] 0.2 EU/dL (04/16/17 8:47 AM) Urine Nitrite POC [Negative] Negative (04/16/17 8:47 AM) Urine Leukocyte Esterase POC [Negative] Negative (04/16/17 8:47 AM) Assessment and Plan Extracted from: Title: Ambulatory Patient Education Author: Hung Black Date: 04/16/17 [facility]. [address] [address] Visit Information/Informacion de Visita Name/Nombre: SHEILA FREEMAN [...] appointment within two weeks, please call for [facility] or for [place]. Additional Patient Information: Height: 5 ft 7 [...] medications to every visit with us at [facility]. Your safety and education around medications is our goal. (Prescription , non prescription and herbal supplements) Date Time Location Appointment Type Provider [facility]2017 08[facility] Patient Instructions/Instrucciones para el Paciente All smokers are encouraged to stop smoking. If you would like help, talk to your doctor or call The [place] Tobacco Quitline at 5-019-JIIU-NOW (4-899-839- 3755). If you have thoughts about committing suicide [...] disorders, such as an underactive thyroid (hypothyroidism), Dana 's syndrome, and polycystic ovarian syndrome. Certain [...] 12/26/2005 Document Revised: 12/09/2015 Document Reviewed: 09/05/2016 [employer]edom[employer] Interactive Patient Education [address] [employer] [facility] I SHEILA FREEMAN have received and understand the attached patient [...] Fecha Take Charge of Your Health with [facility]Los [facility] Center[facility]ocket Lawyerth Sign up today for [facility]Cloudmemorial medical centerRocket Lawyer for access to your health records 24/06. [employer] allows you to: Request an appointment Check your lab results Communicate with your providers and care team See provider notes from your visit View immunization records View current medication Sign up Today! Ask your healthcare provider or a [facility] associate for help, or email [email or web address]. [email or web address] hospitalealEast [facility] complies with applicable Federal civil rights laws and does not discriminate on the basis of race, color, national origin, age, disability, or sex. ATENCIN: si habla espaol, tiene a white disposicin servicios gratuitos de asistencia lingstica. Llirineo al (TTY: ) (TTY: ) : . [phone]( : ).
--- OUTSIDE RECORDS SUMMARY | 2017-09-21 16:15 | External Medical Summary | Summary of Care ---
:1980 Author Organization [facility] Address [facility] , Encounter [facility] Date(s): 04/16/17 - 04/16/17 [facility] [address] [place] [id number] [place] [address] [phone] Final: Supervision of elderly multigravida, third trimester Final: 38 weeks gestation of Final: Other specified diseases and conditions complicating , childbirth and the puerperium Final: Elevated blood-pressure reading, without diagnosis of hypertension Final: Obesity complicating , third trimester Final: Morbid (severe) obesity due to excess calories Final: Body mass index (BMI) 50-59.9 , adult Final: Maternal care for low transverse scar from previous delivery Discharge Disposition: Discharge to Home or Self-care Vital Signs Most recent to oldest [Reference [...] Condition Effective Dates Status Health Status Informant Alteration in Active nutrition(Confirmed)1 At risk of pressure Active sore(Confirmed) Obesity, unspecified(Confirmed)2 Active Pain(Confirmed)3 Active (Confirmed) 04/03/07 - 01/01/08 Resolved (Confirmed) 09/12/04 - 06/12/05 Resolved (Confirmed) 04/06/99 - 01/04/00 Resolved (Confirmed) 07/07/03 - 09/2003 Resolved (Confirmed) 06/08/97 - 03/22/98 Resolved (Confirmed) 08/02/16 Active 1Problem added automatically by system based on documentation of Nausea Present , Bowel Sounds Absent,Malnutrition Screening, Unintentional Weight Change, and Pressure Ulcer Present Upon Admission.2Added based on documentation of BMI= 55.9.3Problem added automatically by system based on documentation of positive finding of pain. Allergies, Adverse Reactions, Alerts Substance Reaction Severity Status Lortab Active Medications acetaminophen Start Date: 03/22/17 Status: Orderedmultivitamin Start Date: 03/22/17 Status: Ordered Results Point Of Care-Glucose Most recent to oldest [Reference Range]: 1 Aviation Safety Equipment Technician ID [id number] *NA* (04/16/17 8:47 AM) Point Of Care Most recent to oldest [Reference Range]: 1 Urine Color POC [Yellow] Yellow (04/16/17 8:47 AM) Urine Clarity POC [Clear] Clear (04/16/17 8:47 AM) Urine Specific [place] POC [1.003-1.030] 1.015 (04/16/17 8:47 AM) Urine [...] Esterase POC [Negative] Negative (04/16/17 8:47 AM) Microbiology Reports TEST:Group B strep screen STATUS:Auth (Verified) BODY SITE: SOURCE:Vaginal/Rectal COLLECTED DATE/TIME:04/16/17 9:46 AMFINAL REPORTStreptococcus Group B screen negative Assessment and Plan Extracted from: Title: Ambulatory Patient Education Author: Hung Black Date: 04/16/17 [facility]. [facility] [address] [place] [address] Visit Information/Informacion de Visita Name/Nombre: SHEILA FREEMAN [...] within two weeks, please call for [facility] or for [place]. Additional Patient Information: Height: 5 ft 7 [...] medications to every visit with us at [facility]. Your safety and education around medications is our goal. (Prescription , non prescription and herbal supplements) Date Time Location Appointment Type Provider 04/22/2017 08:00 am [facility] HH OB OR OB OR 1 Patient Instructions/Instrucciones para el Paciente All smokers are encouraged to stop smoking. If you would like help, talk to your doctor or call The [place] Tobacco Quitline at 5-337-BSFI-NOW (1-188-581- 8056). If you have thoughts about committing suicide [...] 12/26/2005 Document Revised: 12/09/2015 Document Reviewed: 09/05/2016 Prep[employer] Response Interactive Patient Education 2016 [employer]. [facility] PETE Thayer CHRISTY have received [...] Fecha Witness Signature Date Firma de Testigo Bekah Take Charge of Your Health with [facility] Center[facility] Sign up today for [facility]ksadvanced [facility] hospital of southern new mexicoSloka Telecom for access to your health records 24/06. [facility]ksUN[facility] Psych[facility] CenterSloka Telecom allows you to: Request an appointment Check your lab results Communicate with your providers and care team See provider notes from your visit View immunization records View current medication Sign up Today! Ask your healthcare provider or a [facility] associate for help, or email [email or web address]. [email or web address] complies with applicable Federal civil rights laws and does not discriminate on the basis of race, color, national origin, age, disability, or sex. ATENCIN: si joannla omer, tiene a white disposicin servicios gratuitos de asistencia lingstica. Llame al (TTY: ) (TTY: ) : . ( : ).
--- OUTSIDE RECORDS SUMMARY | 2017-09-21 16:16 | External Medical Summary | Continuity of Care Document ---
:1980 Author Organization [facility] Allergies Active Description Code Type Severity Reaction Onset Reported/ Identified Relationship Clinical to Patient Status Yes hydrocodone hydro Drug Unknown RASH, 03/01/2010 bit codon Aller NAUSEA e bit gy AND VOMITTING Yes Lortab Drug N/A Adverse 12/18/2013 Aller Reaction gy Medications Problems Date Dx Attending Type Code Diagnosis Diagnosed By Coded 12/12/2013 Kemper DO, Final 276.1 HYPOSMOLALITY Yoel Thomas 12/12/2013 Kemper DO, Final 276.8 HYPOPOTASSEMIA Yoel G 12/12/2013 Giovanny DO, Final 278.01 MORBID OBESITY Yoel Thomas 12/12/2013 Kemper DO, Final 285.1 ACUTE POSTHEMOR Yoel Thomas ANEMIA 12/12/2013 Giovanny DO, Final 288.60 LEUKOCYTOSIS NOS Yoel G 12/12/2013 Kemper DO, Final 552.21 OBSTR INCISIONAL Yoel G HERNIA 12/12/2013 Giovanny DO, Final 568.0 PERITONEAL ADHESIONS Yoel Thomas 12/12/2013 Kemper DO, Admitting 789.00 ABDOMINAL PAIN-SITE Yoel G NOS 12/12/2013 Kemper DO, Final V85.44 BMI 60.0-69.9 ADULT Yoel Thomas 04/09/2014 Hung Bolaños MD 462 ACUTE PHARYNGITIS 04/09/2014 Hung Bolaños MD Final 780.60 FEVER NOS 04/09/2014 Hung Bolaños MD Final 785.6 ENLARGEMENT LYMPH NODES 04/09/2014 Hung Bolaños MD Final 786.2 COUGH Procedures Code Description Performed By Performed On OT Yoel Baltazar DO 12/15/2013 47.19 INCIDENTAL APPY INC Yoel Baltazar DO 12/15/2013 53.61 HERNIA REPAIR-GRAFT Yoel Baltazar DO 12/15/2013 54.59 PERITON ADHESIOLYSIS NEC Results Encounters ACCT No. Visit Discharge Status Pt. Type Provider Facility Loc./Unit Complaint Date/Time [id number] 04/09/2014 04/09/2014 DIS Emergency Miky GRIFFITH, [facility] 4 21:11:00 22:25:00 [facility] [id number] 12/11/2013 12/20/2013 DIS Inpatient Giovanny [facility] 4 15:15:00 12:00:00 Yoel OLIVIA [facility] [id number] 04/27/2017 04/27/2017 DIS Emergency Bautista GoffEDS 63 14:22:00 16:04:00 , [facility]
--- OUTSIDE RECORDS SUMMARY | 2017-09-21 16:16 | External Medical Summary ---
:1980 Author Organization [facility] Address [address], [address] [place], [place] [address] Care Team Providers Name Role Phone Walt Cruz Unavailable Unavailable PROBLEMS Unknown Problems ALLERGIES Unknown Allergies SOCIAL HISTORY No smoking Hx information available PLAN OF CARE VITAL SIGNS MEDICATIONS Unknown Medications RESULTS No Results PROCEDURES No Known procedures IMMUNIZATIONS No Known Immunizations
--- OUTSIDE RECORDS SUMMARY | 2017-09-21 16:16 | External Medical Summary ---
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 , antepartum ALLERGIES Unknown Allergies SOCIAL HISTORY No smoking Hx information available PLAN OF CARE VITAL SIGNS Weight 367.2 lbs 2017-04-05 Heart Rate 96 /min 2017-04-05 Blood pressure systolic 139 mm Hg 2017-04-05 Blood pressure diastolic 89 mm Hg 2017-04-05 MEDICATIONS Medication Instructions Dosage Frequency Start End Date Duration Status Date Active Vitamin - Zithromax Z-Ilir Orally Once a 2 tablets 24h Mar, 5 day(s) Active 250 MG day on the 2016 first day, then 1 tablet daily for 4 days tylenol 1 tab Active RESULTS No Results PROCEDURES Procedure Date Ordered Related Diagnosis Body Site Office Visit, Est Pt., Level 3 April 05, 2017 IMMUNIZATIONS No Known Immunizations
--- OUTSIDE RECORDS SUMMARY | 2017-09-21 16:16 | External Medical Summary | Summary of Care ---
:1980 Author Organization [facility] Address [facility] , Encounter [facility] Date(s): 04/16/17 - 04/16/17 [facility] [address], [place] [id number] [place] [address] [phone] Discharge Disposition: Discharge to Home or Self-care OP Vital Signs Most recent to oldest 1 2 3 [Reference Range]: Temperature Oral [96.4-99.1 98.9 DegF DegF] (04/16/17 10:34 AM) Heart Rate [60-100 bpm] 87 bpm 99 bpm 90 bpm (04/16/17 11:40 AM) (04/16/17 11:17 AM) (04/16/17 10:57 AM) Resp. Rate [14-20 BRMIN] 16 BRMIN (04/16/17 10:34 AM) Blood Pressure [90-140/60-90 126/67 mmHg 119/62 mmHg 127/73 mmHg mmHg] (04/16/17 11:40 AM) (04/16/17 11:17 AM) (04/16/17 10:57 AM) BP Site Left Arm (04/16/17 10:34 AM) Cuff Size Adult Large Cuff (04/16/17 10:34 AM) Oxygen Therapy Room air (04/16/17 10:34 AM) Problem List Condition Effective Dates Status [...] Orderedmultivitamin Start Date: 03/22/17 Status: Ordered Results Chemistry Most recent to oldest [Reference Range]: 1 Sodium [136-144 mmol/L] 137 mmol/L (04/16/17 11:22 AM) Potassium [3.6-5.1 mmol/L] 3.7 mmol/L (04/16/17 11:22 AM) Chloride [95-105 mmol/L] 101 mmol/L (04/16/17 11:22 AM) CO2 [22-32 mmol/L] 20 mmol/L *LOW* (04/16/17 11:22 AM) Anion Gap [10-20 mmol/L] 16 mmol/L (04/16/17 11:22 AM) Glucose [70-99 mg/dL] 79 mg/dL (04/16/17 11:22 AM) BUN [8-20 mg/dL] 8 mg/dL (04/16/17 11:22 AM) Creatinine [0.90-1.30 mg/dL] 0.40 mg/dL *LOW* (04/16/17 11:22 AM) BUN/Creat Ratio [12.1-20.1] 20.0 (04/16/17 11:22 AM) GFR -Bahamian [>=60 mL/min/1.73m2] >90 mL/min/1.73m2 (04/16/17 11:22 AM) GFR Non -Bahamian [>=60 mL/min/1.73m2] >90 mL/min/1.73m2 (04/16/17 11:22 AM) Calcium [8.6-10.3 mg/dL] 9.2 mg/dL (04/16/17 11:22 AM) Total Protein [6.1-7.9 g/dL] 7.0 g/dL (04/16/17 AM) Albumin [3.5-4.8 g/dL] 3.3 g/dL *LOW* (04/16/17:22 AM) Globulin [2.6-3.2 g/dL] 3.7 g/dL *HI* (04/16/17 AM) Albumin/Globulin Ratio [1.3-1.5] 0.9 *LOW* (04/16/17 11:22 AM) Bilirubin Total [0.3-1.2 mg/dL] 0.2 mg/dL *LOW* (04/16/17: AM) Alkaline Phosphatase [35-104 IU/L] 81 IU/L (04/16/17:22 AM) AST [15-41 U/L] 10 U/L *LOW* (04/16/17 11: AM) ALT [14-54 U/L] 8 U/L *LOW* (04/16/17 11:22 AM) Hematology Most recent to oldest [Reference Range]: 1 WBC [4.30-10.80 10^3/cmm] 9.80 10^3/cmm (04/16/17 11:12 AM) RBC [4.20-5.20 10^6/cmm] 4.53 10^6/cmm (04/16/17 11:12 AM) Hemoglobin [12.0-16.0 g/dL] 11.7 g/dL *LOW* (04/16/17 11:12 AM) Hematocrit [34.0-47.0 %] 36.5 % (04/16/17 11:12 AM) MCV [80.0-100.0 FL] 80.5 FL (04/16/17 11:12 AM) MCH [27.0-34.0 PG] 25.9 PG *LOW* (04/16/17 11:12 AM) MCHC [32.0-36.0 g/dL] 32.1 g/dL (04/16/17 11:12 AM) Plt [150-400 10^3/cmm] 249 10^3/cmm (04/16/17 11:12 AM) MPV [7.4-10.4 FL] 7.9 FL (04/16/17 11:12 AM) RDW [11.5-14.5 %] 15.5 % *HI* (04/16/17 11:12 AM) Gran % [45.0-74.0 %] 80.0 % *HI* (04/16/17 11:12 AM) Lymph % [22.0-50.0 %] 14.3 % *LOW* (04/16/17 11:12 AM) [place] % [1.0-9.0 %] 5.2 % (04/16/17 11:12 AM) Eos % [1.0-8.0 %] 0.4 % *LOW* (04/16/17 11:12 AM) Baso % [0.0-2.0 %] 0.1 % (04/16/17 11:12 AM) Gran [1.4-7.0 10^3/cmm] 7.8 10^3/cmm *HI* (04/16/17 11:12 AM) Lymph [1.2-3.5 10^3/cmm] 1.4 10^3/cmm (04/16/17 11:12 AM) Mesa [0.0-0.6 10^3/cmm] 0.5 10^3/cmm (04/16/17 11:12 AM) Eos [0.00-0.70 10^3/cmm] 0.00 10^3/cmm (04/16/17 11:12 AM) Baso [0.00-0.15 10^3/cmm] 0.00 10^3/cmm (04/16/17 11:12 AM) NRBC Auto 0.0 /100WBC *NA* (04/16/17 11:12 AM) Blood Bank Cumulatives Most recent to oldest [Reference Range]: 1 I ABORH A POS *Unknown* (04/16/17 11:12 AM) Urine Chemistry Most recent to oldest [Reference Range]: 1 U Protein [0.0-10.0 mg/dL] 9.0 mg/dL (04/16/17 11:29 AM) Ur Protein/Creat Ratio 109.8 mg/g *NA* (04/16/17 11:29 AM) U Creat [10-400 mg/dL] 82 mg/dL (04/16/17 11:29 AM) Assessment and Plan Extracted from: Title: Pre-Anesthesia Assessment * Author: Chicho Macias Date: 04/19/17 Plan Anesthetic Preoperative Plan: Anesthesia: General, ETT, Epidural, and SAB. Consent: Anesthesia plan, risks and benefits discussed. Risks discussed but not limited to N/V, H/A, sore-throat, dental injury and other serious complication. See separate signed consent. Questions ans wered. Informed consent given. ( Consent given by ( patient ) ). [place] Society of Anesthesiologists#(ASA) physical status classification: Class IV. Attestation: At 04/19/17 09:52:00 I reviewed and updated the patient's medical history, including anesthesia, drug and allergy history; and interviewed and examined the patient..
--- OUTSIDE RECORDS SUMMARY | 2017-09-21 16:16 | External Medical Summary | Summary of Care ---
:1980 Author Organization [facility] Address [facility] , Encounter [facility] [id number] Date(s): 04/19/17 - 04/23/17 [facility] [address] [place] [id number] [place] [address] [phone] Final: Maternal care for low transverse scar from previous delivery Final: Body mass index (BMI) 50-59.9 , adult Final: Acquired absence of other specified parts of digestive tract Final: Elevated blood-pressure reading, without diagnosis of hypertension Final: 39 weeks gestation of Final: Maternal care for breech presentation, not applicable or unspecified Final: Other specified diseases and conditions complicating , childbirth and the puerperium Final: Anemia of the puerperium Final: Allergy status to narcotic agent status Final: Obesity complicating childbirth Final: Morbid (severe) obesity due to excess calories Final: Single live Final: Labor and delivery complicated by cord around neck, without compression, not applicable or unspecified Final: Maternal care for (suspected) abnormality and damage, unspecified, not applicable or unspecified Discharge Diagnosis: delivery delivered Discharge Diagnosis: 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 Rate [14-20 BRMIN] 18 BRMIN 19 BRMIN 18 BRMIN (04/23/17 8:00 AM) (04/22/17 7:39 PM) (04/22/17 1:18 PM) Blood Pressure [90-140/60-90 134/74 mmHg 121/67 mmHg 114/63 mmHg mmHg] (04/23/17 8:00 AM) (04/22/17 7:39 PM) (04/22/17 1:18 PM) Mean Arterial Pressure 94 mmHg 85 mmHg 80 mmHg (04/23/17 8:00 AM) (04/22/17 7:39 PM) (04/22/17 1:18 PM) BP Site Right Arm Right Arm Right Arm (04/23/17 8:00 AM) (04/22/17 7:39 PM) (04/22/17 1:18 PM) Cuff Size Adult Large Cuff Adult Large Cuff Adult Large Cuff (04/22/17 7:39 PM) (04/22/17 1:18 PM) (04/22/17 7:48 AM) Oxygen Saturation [92-100 %] 96 % 95 % 95 % (04/19/17 4:10 PM) (04/19/17 3:55 PM) (04/19/17 3:55 PM) Oxygen Therapy Room air Room air Room air (04/23/17 8:00 AM) (04/22/17 7:39 PM) (04/22/17 1:18 PM) Problem List Condition Effective Dates Status Health Status Informant Bereavement(Confirmed) Active Obesity, unspecified(Confirmed)1 Active (Confirmed) 04/03/07 - 01/01/08 Resolved (Confirmed) 09/12/04 - 06/12/05 Resolved (Confirmed) 04/06/99 - 01/04/00 Resolved (Confirmed) 07/07/03 - 09/2003 Resolved (Confirmed) 06/08/97 - 03/22/98 Resolved (Confirmed) 08/02/16 - 04/19/17 Resolved 1Added based on documentation of BMI=55.9. Allergies, Adverse Reactions, Alerts Substance Reaction Severity Status Lortab Active Medications docusate-senna 50 mg-8.6 mg oral tablet 1 tab, PO, BID, # 60 tab, 5 Refill(s) Start Date: 04/22/17 Stop Date: 08/02/17 Status: Orderedferrous sulfate 325 mg oral tablet 1 tab, PO, Daily, # 30 tab, 5 Refill(s) Start Date: 04/22/17 Status: Orderedibuprofen 800 mg oral tablet =800 mg, 1 tab, PO, Q8H, # 30 tab, 5 Refill(s) Start Date: 04/22/17 Stop Date: 08/02/17 Status: Orderedmultivitamin, Multivitamins oral tablet, chewable 1 tab, Chewed, Daily, # 30 tab, 5 Refill(s) Start Date: 04/22/17 Status: OrderedPercocet-5/325 325 mg-5 mg oral tablet 1 tab, PO, Q4H, PRN for pain, # 40 tab, 0 Refill(s) Start Date: 04/22/17 Stop Date: 08/02/17 Status: Ordered Results Chemistry Most recent to oldest [Reference Range]: 1 2 Sodium [136-144 mmol/L] 138 mmol/L (04/19/17 8:56 AM) Potassium [3.6-5.1 mmol/L] 4.1 mmol/L (04/19/17 8:56 AM) Chloride [95-105 mmol/L] 102 mmol/L (04/19/17 8:56 AM) CO2 [22-32 mmol/L] 21 mmol/L *LOW* (04/19/17 8:56 AM) Anion Gap [10-20 mmol/L] 15 mmol/L (04/19/17 8:56 AM) Glucose [70-99 mg/dL] 86 mg/dL (04/19/17 8:56 AM) BUN [8-20 mg/dL] 8 mg/dL (04/19/17 8:56 AM) Creatinine [0.90-1.30 mg/dL] 0.43 mg/dL *LOW* (04/19/17 8:56 AM) BUN/Creat Ratio [12.1-20.1] 18.6 (04/19/17 8:56 AM) GFR -[place] [>=60 mL/min/1.73m2] >90 mL/min/1.73m2 (04/19/17 8:56 AM) GFR Non -[place] African [>=60 mL/min/1.73m2] >90 mL/min/1.73m2 (04/19/17 8:56 AM) Calcium [8.6-10.3 mg/dL] 9.2 mg/dL (04/19/17 8:56 AM) Total Protein [6.1-7.9 g/dL] 7.3 g/dL (04/19/17 8:56 AM) Albumin [3.5-4.8 g/dL] 3.4 g/dL *LOW* (04/19/17 8:56 AM) Globulin [2.6-3.2 g/dL] 3.9 g/dL *HI* (04/19/17 8:56 AM) Albumin/Globulin Ratio [1.3-1.5] 0.9 *LOW* (04/19/17 8:56 AM) Bilirubin Total [0.3-1.2 mg/dL] 0.2 mg/dL *LOW* (04/19/17 8:56 AM) Alkaline Phosphatase [35-104 IU/L] 82 IU/L (04/19/17 8:56 AM) AST [15-41 U/L] 9 U/L *LOW* (04/19/17 8:56 AM) ALT [14-54 U/L] 8 U/L *LOW* (04/19/17 8:56 AM) Hematology Most recent to oldest [Reference Range]: 1 2 WBC [4.30-10.80 10^3/cmm] 12.60 10^3/cmm 11.30 10^3/cmm *HI* *HI* (04/20/17 3:06 AM) (04/19/17 8:52 AM) RBC [4.20-5.20 10^6/cmm] 4.40 10^6/cmm 4.54 10^6/cmm (04/20/17 3:06 AM) (04/19/17 8:52 AM) Hemoglobin [12.0-16.0 g/dL] 11.2 g/dL 11.8 g/dL *LOW* *LOW* (04/20/17 3:06 AM) (04/19/17 8:52 AM) Hematocrit [34.0-47.0 %] 35.7 % 36.7 % (04/20/17 3:06 AM) (04/19/17 8:52 AM) MCV [80.0-100.0 FL] 81.1 FL 81.0 FL (04/20/17 3:06 AM) (04/19/17 8:52 AM) MCH [27.0-34.0 PG] 25.6 PG 25.9 PG *LOW* *LOW* (04/20/17 3:06 AM) (04/19/17 8:52 AM) MCHC [32.0-36.0 g/dL] 31.5 g/dL 32.0 g/dL *LOW* (04/19/17 8:52 AM) (04/20/17 3:06 AM) Plt [150-400 10^3/cmm] 239 10^3/cmm 241 10^3/cmm (04/20/17 3:06 AM) (04/19/17 8:52 AM) MPV [7.4-10.4 FL] 8.0 FL 8.2 FL (04/20/17 3:06 AM) (04/19/17 8:52 AM) RDW [11.5-14.5 %] 16.6 % 16.7 % *HI* *HI* (04/20/17 3:06 AM) (04/19/17 8:52 AM) Gran % [45.0-74.0 %] 86.2 % 79.7 % *HI* *HI* (04/20/17 3:06 AM) (04/19/17 8:52 AM) Lymph % [22.0-50.0 %] 8.3 % 13.9 % *LOW* *LOW* (04/20/17 3:06 AM) (04/19/17 8:52 AM) Bates % [1.0-9.0 %] 4.6 % 5.3 % (04/20/17 3:06 AM) (04/19/17 8:52 AM) Eos % [1.0-8.0 %] 0.8 % 1.0 % *LOW* (04/19/17 8:52 AM) (04/20/17 3:06 AM) Baso % [0.0-2.0 %] 0.1 % 0.1 % (04/20/17 3:06 AM) (04/19/17 8:52 AM) Gran [1.4-7.0 10^3/cmm] 10.8 10^3/cmm 9.0 10^3/cmm *HI* *HI* (04/20/17 3:06 AM) (04/19/17 8:52 AM) Lymph [1.2-3.5 10^3/cmm] 1.0 10^3/cmm 1.6 10^3/cmm *LOW* (04/19/17 8:52 AM) (04/20/17 3:06 AM) Bates [0.0-0.6 10^3/cmm] 0.6 10^3/cmm 0.6 10^3/cmm (04/20/17 3:06 AM) (04/19/17 8:52 AM) Eos [0.00-0.70 10^3/cmm] 0.10 10^3/cmm 0.10 10^3/cmm (04/20/17 3:06 AM) (04/19/17 8:52 AM) Baso [0.00-0.15 10^3/cmm] 0.00 10^3/cmm 0.00 10^3/cmm (04/20/17 3:06 AM) (04/19/17 8:52 AM) NRBC Auto 0.0 /100WBC 0.0 /100WBC *NA* *NA* (04/20/17 3:06 AM) (04/19/17 8:52 AM) Blood Bank Cumulatives Most recent to oldest [Reference Range]: 1 2 I ABORH A POS *Unknown* (04/19/17 8:52 AM) ABSC INT Negative (04/19/17 8:52 AM) Urine Chemistry Most recent to oldest [Reference Range]: 1 2 U Protein [0.0-10.0 mg/dL] 9.0 mg/dL (04/19/17 8:56 AM) Ur Protein/Creat Ratio 204.5 mg/g *NA* (04/19/17 8:56 AM) U Creat [10-400 mg/dL] 44 mg/dL (04/19/17 8:56 AM) Infectious Serology / Molecular Testing Most recent to oldest [Reference Range]: 1 2 HIV-1/2 Ag Ab Non-Reactive (04/19/17 8:52 AM) HIV-1 Ab Non-Reactive (04/19/17 8:52 AM) HIV-2 Ab Non-Reactive (04/19/17 8:52 AM) HIV-1 Ag p24 Non-Reactive (04/19/17 8:52 AM) Syphilis Antibody Non-Reactive (04/19/17 8:52 AM) Immunizations Given and Recorded Vaccine Date Status Refusal Reason MMR (measles/mumps/rubella) 04/22/17 Given Assessment and Plan Extracted from: Title: Operative/Procedure Certification * Author: Claudia Carranza Date: Assessment Operative/Procedure Certification Surgery Start Time Surgery [...] Surgeon/Attending: Reji Rich. Resident/Fellow: Claudia Carranza 1st Correctional Officer Sergeant: Dinorah Clark Formal Report to be dictated by Claudia Carranza Extracted from: Title: OB Intraop Author: Tiffanie Gallardo Date: 04/19/17 OB Intraop Summary Primary Physician: Reji Rich Finalized Date/Time: 04/19/17 17:39:59 Pt. Name: SHEILA FREEMAN/Sex: 1980 Female Med Rec #: [id number] Physician: Adalberto Martinez Financial #: [id number] Pt. Type: O Room/Bed: [facility]/ Admit/Disch: 04/19/17 08:51:00 - Institution: OB Case Times Entry 1 In Room Time 04/19/17 12:26:00 Start Time 04/19/17 13:01:00 Stop Time 04/19/17 13:45:00 Out Room Time 04/19/17 13:53:00 OB General Case Seater Assembler 1 Case Information OR OB OR Specialty POLICE BOOKING OFFICER ASA Class 3 Wound Class CLEAN-CONTAMINATED Case [...] 13:45:00 04/19/17 13:53:00 Procedure CAESAREAN SECTION(NA) CAESAREAN SECTION( NA) CAESAREAN SECTION(NA) Entry 4 Entry 5 Entry 6 Case Attendee Chicho Macias , Tiffanie Liz Role Performed ANESTHESIOLOGIST LAUNDRY WORKER RN STUDENT LIFE ADVISOR Time In 04/19/17 12:26:00 04/19/17 12:26:00 04/19/17 12:26:00 Time Out 04/19/17 13:53:00 04/19/17 13:53:00 04/19/17 13:53:00 Procedure CAESAREAN SECTION(NA) CAESAREAN SECTION( NA) CAESAREAN SECTION(NA) Entry 7 Entry 8 Entry 9 Case Attendee Aline Santana , Radha Welch Role Performed RN STUDENT LIFE ADVISOR 2 CONSUMER INSIGHTS SPECIALIST TOOL DESIGN DRAFTSPERSON Time In 04/19/17 12:26:00 04/19/17 12:26:00 04/19/17 13:00:00 Time Out 04/19/17 13:53:00 04/19/17 13:53:00 04/19/17 13:35:00 Procedure CAESAREAN SECTION(NA) CAESAREAN SECTION( NA) CAESAREAN SECTION(NA) Entry 10 Entry 11 Entry 12 Case Attendee Keisha Love , Sandar He Role Performed NURSE TECHNICAL SOLUTIONS CONSULTANT FELLOW PRACTITIONER Time In 04/19/17 13:00:00 04/19/17 13:00:00 04/19/17 13:00:00 Time Out 04/19/17 13:35:00 04/19/17 13:35:00 04/19/17 13:35:00 Procedure CAESAREAN SECTION(NA) CAESAREAN SECTION( NA) CAESAREAN SECTION(NA) Entry 13 Entry 14 Entry 15 Case Attendee Lauren Chang Carole B Engelman, Luke D Role Performed MEDICAL STUDENT TOOL DESIGN DRAFTSPERSONCELLARS SUPERVISOR RESIDENT Time In 04/19/17 13:00:00 04/19/17 13:00:00 04/19/17 13:00:00 Time Out 04/19/17 13:35:00 04/19/17 13:35:00 04/19/17 13:35:00 Procedure CAESAREAN SECTION(NA) CAESAREAN SECTION( NA) CAESAREAN SECTION(NA) Entry 16 Entry 17 Case Attendee Zi Lerner Richard R. Role Performed PEDIATRIC RESIDENT STAFF SURGEON Time In 04/19/17 13:00:00 04/19/17 13:00:00 Time Out 04/19/17 13:35:00 04/19/17 13:45:00 Procedure CAESAREAN SECTION(NA) CAESAREAN SECTION( NA) OB Surgical proc Entry 1 Scheduled Procedure CAESAREAN SECTION Primary Procedure Yes Staff Surgeon Reji Rich Modifiers NA Anesthesia Type SPINAL Surgical Service POLICE BOOKING OFFICER Start 04/19/17 13:01:00 Stop 04/19/17 13:45:00 Operative [...] 04/19/17 13:30:00 Count Blades 2 2 2 [place] 3 3 3 Laps 20 20 20 [...] Time of 04/19/17 13:35:00 Count Blades 2 [place] 3 Laps 20 Raytec 0 Misc Bovitip-1 [...] 1 Cautery CE # OB - [place] [id number] Coag Setting 35 Cut Setting 35 Bipolar [...] TO LAB Specimen No Verification Case Comments <None> Finalized By: Tiffanie Gallardo Document Signatures Signed By: Tiffanie Gallardo 04/19/17 17:39 Extracted from: Title: OB Admission History and Physical Author: Claudia Carranza Date: Impression and Plan
--- OUTSIDE RECORDS SUMMARY | 2017-09-21 16:16 | External Medical Summary ---
:1980 Author Organization [facility] Address [address], [address] [place], [place] [address] Care Team Providers Name Role Phone Walt Cruz Unavailable Unavailable PROBLEMS Unknown Problems ALLERGIES Unknown Allergies SOCIAL HISTORY No smoking Hx information available PLAN OF CARE VITAL SIGNS Weight 360.4 lbs 2017-05-01 Blood pressure systolic 143 mm Hg 2017-05-01 Blood pressure diastolic 80 mm Hg 2017-05-01 MEDICATIONS Medication Instructions Dosage Frequency Start End Date Duration Status Date Active Vitamin - Clindamycin HCl Orally every 8 1 capsule 8h 01 May, 10 days Active 300 MG 2016 Zithromax Z-Ilir Orally Once a 2 tablets 24h Mar, 5 day(s) Active 250 MG day on the 2016 first day, then 1 tablet daily for 4 days Oxycodone HCl 5 Orally BID 1 tablet 12h Active MG tylenol 1 tab Active RESULTS No Results PROCEDURES Procedure Date Ordered Related Diagnosis Body Site Office Visit, Est Pt., Level 3 May 01, 2017 IMMUNIZATIONS No Known Immunizations
--- OUTSIDE RECORDS SUMMARY | 2017-09-21 16:16 | External Medical Summary ---
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
--- OUTSIDE RECORDS SUMMARY | 2017-09-21 16:16 | External Medical Summary | Summary of Care ---
:1980 Author Organization [facility] Address [facility] , Encounter 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 Discharge Disposition: Discharge to Home or Self-care Attending Physician: Adalberto Martinez Admitting Physician: Adalberto Martinez Vital Signs Most recent to oldest 1 [...] Substance Reaction Severity Status Lortab Active Medications docusate 100 mg,=1 cap, cap, BID, PO, Start date 04/19/17 17:00:00, when tolerating regular diet Start Date: 04/19/17 Status: Ordereddocusate-senna 50 mg-8.6 mg oral tablet 1 tab, PO, BID, # 60 tab, 5 Refill(s) Start Date: 04/22/17 Stop Date: 08/02/17 Status: Orderedferrous sulfate 325 mg oral tablet 1 tab, PO, Daily, # 30 tab, 5 Refill(s) Start Date: 04/22/17 Status: Orderedglycerin-witch selam topical 1 APL, pad, As Needed, Topical, PRN Hemorrhoids, Start date 04/19/17 13:53:00, May keep at bedside Notes: Apply patient addressograph sticker to outside of container if no patient label is attached by pharmacy. Start Date: 04/19/17 Status: Orderedibuprofen 800 mg,=1 tab, tab, Q8H, PO, Start date 04/19/17 17:00:00 Notes: SHOULD TAKE WITH FOOD TIME CRITICAL MED IF SCHEDULED Start Date: 04/19/17 Status: Orderedibuprofen 800 mg oral tablet =800 mg, 1 tab, PO, Q8H, # 30 tab, 5 Refill(s) Start Date: 04/22/17 Stop Date: 08/02/17 Status: Orderedlanolin topical 1 APL, ointment, As Needed, Topical, PRN Other, See Notes, Start date 04/19/17 13:53:00, For nipple tenderness Notes: Found in supply pyxis at Start Date: 04/19/17 Status: Orderedmagnesium citrate 300 mL, liquid, ONCE, PO, PRN Constipation, Start date 04/20/17 9:00:00, morning of postop day 1 Start Date: 04/20/17 Status: Orderedmagnesium hydroxide 30 mL, suspension, Daily, PO, PRN Constipation/Indigestion, Start date 04/19/17 13:53:00, 2,400 mg Start Date: 04/19/17 Status: Orderedmultivitamin, Multivitamins oral tablet, chewable 1 tab, Chewed, Daily, # 30 tab, 5 Refill(s) Start Date: 04/22/17 Status: OrderedNormal Saline 50 mL IVPB Flush 25 mL, injection, As Needed, IVPush, PRN Flush, Start date 04/19/17 15:44:00 Start Date: 04/19/17 Status: OrderedPercocet 5/325 2 tab, tab, Q4H, PO, PRN Pain Severe (7-10), Start date 04/19/17 13:53:00 Notes: Not to exceed 4000 mg of acetaminophen TOTAL in 24 hours.TIME CRITICAL MED IF SCHEDULED Start Date: 04/19/17 Status: OrderedPercocet-5/325 325 mg-5 mg oral tablet 1 tab, PO, Q4H, PRN for pain, # 40 tab, 0 Refill(s) Start Date: 04/22/17 Stop Date: 08/02/17 Status: Orderedsimethicone 80 mg,=1 tab, tablet, chewable, Q6H, PO, PRN Gas/Gas pain, Start date 04/19/17 13:53:00 Start Date: 04/19/17 Status: Orderedzolpidem 5 mg,=1 tab, tab, QHS, PO, PRN Insomnia, Start date 04/19/17 13:53:00 Start Date: 04/19/17 Status: Ordered Results Chemistry Most recent to [...] Ratio [12.1-20.1] 18.6 (04/19/17 8:56 AM) GFR -Montserratian [>=60 mL/min/1.73m2] >90 mL/min/1.73m2 (04/19/17 8:56 AM) GFR Non -Montserratian [>=60 mL/min/1.73m2] >90 mL/min/1.73m2 (04/19/17 8:56 AM) [...] *LOW* (04/20/17 3:06 AM) (04/19/17 8:52 AM) C[place] % [1.0-9.0 %] 4.6 % 5.3 % [...] *LOW* (04/19/17 8:52 AM) (04/20/17 3:06 AM) Ciales [0.0-0.6 10^3/cmm] 0.6 10^3/cmm 0.6 10^3/cmm (04/20/17 [...] Surgeon/Attending: Reji Rich. Resident/Fellow: Claudia Carranza 1st Market Development Director: Dinorah Clark Formal Report to be dictated by Claudia Carranza Extracted from: Title: OB Intraop Author: Tiffanie Gallardo Date: 04/19/17 OB Intraop Summary Primary Physician: Reji Rich Finalized Date/Time: 04/19/17 17:39:59 Pt. Name: SHEILA FREEMAN/Sex: 1980 Female Med Rec #: [id number] Physician: Adalberto Martinez Financial #: [id number] Pt. 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 Operator 1 Case Information OR OB OR 01 Specialty BIOCHEMICAL ENGINEER ASA Class 3 Wound Class CLEAN-CONTAMINATED Case [...] XX, multiple cardiac anomalies, Class 3 obesity, HH OB Case Attendees Entry 1 Entry 2 Entry 3 Case Attendee Dinorah Clark , Brandy Zamora Role Performed RESIDENT SURGEON RESIDENT SURGEON SRNA Time In 04/19/17 12:55:00 04/19/17 12:55:00 04/19/17 12:26:00 Time Out 04/19/17 13:45:00 04/19/17 13:45:00 04/19/17 13:53:00 Procedure CAESAREAN SECTION(NA) CAESAREAN SECTION( NA) CAESAREAN SECTION(NA) Entry 4 Entry 5 Entry 6 Case Attendee Chicho Macias , Tiffanie Liz Role Performed ANESTHESIOLOGIST CARTRIDGE ASSEMBLING MACHINE ADJUSTER RN EXHIBIT CLEANER Time In 04/19/17 12:26:00 04/19/17 12:26:00 04/19/17 12:26:00 Time Out 04/19/17 13:53:00 04/19/17 13:53:00 04/19/17 13:53:00 Procedure CAESAREAN SECTION(NA) CAESAREAN SECTION( NA) CAESAREAN SECTION(NA) Entry 7 Entry 8 Entry 9 Case Attendee lAine Santana , Radha Welch Role Performed RN EXHIBIT CLEANER 2 MIXER OPERATOR PERL DEVELOPER Time In 04/19/17 12:26:00 04/19/17 12:26:00 04/19/17 13:00:00 Time Out 04/19/17 13:53:00 04/19/17 13:53:00 04/19/17 13:35:00 Procedure CAESAREAN SECTION(NA) CAESAREAN SECTION( NA) CAESAREAN SECTION(NA) Entry 10 Entry 11 Entry 12 Case Attendee Keisha Love , Sandra He Role Performed NURSE HR ADMINISTRATOR FELLOW PRACTITIONER Time In 04/19/17 13:00:00 04/19/17 13:00:00 04/19/17 13:00:00 Time Out 04/19/17 13:35:00 04/19/17 13:35:00 04/19/17 13:35:00 Procedure CAESAREAN SECTION(NA) CAESAREAN SECTION( NA) CAESAREAN SECTION(NA) Entry 13 Entry 14 Entry 15 Case Attendee Lauren Chang Carole B Engelman, Luke D Role Performed MEDICAL STUDENT PERL DEVELOPERMAINTENANCE SHOP CLERK RESIDENT Time In 04/19/17 13:00:00 04/19/17 13:00:00 [...] CAESAREAN SECTION Primary Procedure Yes Staff Surgeon eRji Rich Modifiers NA Anesthesia Type SPINAL Surgical Service BIOCHEMICAL ENGINEER Start 04/19/17 13:01:00 Stop 04/19/17 13:45:00 Operative Procedure x5 Per Surgeon Is this case due to No a blunt or penetrating trauma? Was the entire No procedure performed via laparoscope or Robotic assistance? HH OB Entry 1 FHT n/a Incision Site Low Transverse HH OB Counts Pre-Care Text: X-Ray needed for incorrect count, no initial count, or 50 or more sponges Entry 1 Entry 2 Entry 3 Count Sequence INITIAL FIRST SECOND Completion Time of 04/19/17 12:35:00 04/19/17 13:24:00 04/19/17 13:30:00 Count Blades 2 2 2 [place] 3 3 3 Laps 20 20 20 [...] Time of 04/19/17 13:35:00 Count Blades 2 [place] 3 Laps 20 Raytec 0 Misc Bovitip-1 [...] OB Cautery Entry 1 Cautery CE # [facility] [place] [id number] Coag Setting 35 Cut Setting 35 Bipolar [...]
--- NOTE | 2017-09-21 16:33 | Emergency Department Report ---
Fever HPI - General Chief Complaint: Fever Stated Complaint: fever,achy,bumps under arm Time Seen by Provider: 09/21/17 15:43 Source: patient Mode of arrival: ambulatory Limitations: no limitations - History of Present Illness HPI Narrative: Pt c/o large painful bumps to her left axilla which she noticed started to develop about a week ago. She reports fever for the last 2-3 days as high as 104 degrees today which she took tylenol for prior to arrival. Pt claims she has had small areas of infection to the same place in the past which she says she has drained [on her own but these are much larger and more painful Maximum Temperature: 104 F Temperature Source: axillary Associated symptoms: other (malaise) Relieving factors: nothing, acetaminophen - Related Data Home Medications Medication Instructions Recorded Confirmed Acetaminophen 650 mg PO Q4H PRN 09/21/17 09/21/17 Ibuprofen 400 mg PO Q4H PRN 09/21/17 09/21/17 Naproxen Sodium [Aleve] 1 cap PO BIDWM PRN 09/21/17 09/21/17 Allergies Allergy/AdvReac Type Severity Reaction Status Date / Time acetaminophen [From Lortab] Allergy Severe Hives Verified 09/21/17 15:56 hydrocodone [From Lortab] Allergy Severe Hives Verified 09/21/17 15:56 Review of Systems All systems: reviewed and negative except as stated Constitutional: Reports: fever, chills, weakness Gastrointestinal: Denies: nausea, vomiting, diarrhea Integumentary: Reports: other (abscess) PFSH Patient Stated Medical History Migraine Yes - Social History Smoking status: Never smoker Physical Exam - Limitations Limitations: no limitations - General General appearance: alert, in distress - Normal Exams: Eyes:: Pupils are PERRLA w/ EOMI Neck:: Full range of motion, without adenopathy Chest/Respirations:: Clear all mancia, with good airflow Cardiovascular:: Regular rate and rhythm, without murmur or gallop, Pulses 2+ all extremities Abdomen:: Bowel sounds positive, soft, non-tender, non-distended Musculoskeletal:: No tenderness, or deformity noted, good range of motion, all extremities Neurological:: Patient is alert, and oriented Psychiatric:: Patient exhibits, appropriate attention - Skin Skin exam: Present: warm, dry - Expanded Skin Exam Type of lesion: Present: abscess (quarter size, golf ball size, and tennis ball sized abscesses to the left axilla) Course - Consultations Consultation #1: Stephany Time: 16:10 Vital Signs Temperature 99.1 F 09/21/17 15:40 Pulse Rate 99 09/21/17 15:40 Respiratory Rate 22 09/21/17 15:40 Blood Pressure 164/97 H 09/21/17 15:40 Pulse Oximetry 96 09/21/17 15:40 Temperature 99.1 F 09/21/17 15:40 Pulse Rate 99 09/21/17 15:40 Respiratory Rate 22 09/21/17 15:40 Blood Pressure 164/97 H 09/21/17 15:40 Pulse Oximetry 96 09/21/17 15:40 Fever - MDM Narrative Medical decision making narrative: Differential Cellulitis Abscess Fever MDM Assessment reveals hard, painful inflamed areas to pt left axilla consistent with large abscesses. Dr Hammond notified for eval and will be admitting pt for surgical intervention tomorrow. Labs obtained and pending. Pt verbalizes understanding of admission and upcoming procedure - Lab Data Result diagrams: 09/21/17 16:21 Disposition Clinical Impression: Abscess Disposition: 02 To [facility] Acute Care Condition: Improved Prescriptions: No Action Ibuprofen 400 mg PO Q4H PRN PRN Reason: Pain Naproxen Sodium [Aleve] 1 cap PO BIDWM PRN PRN Reason: Pain Acetaminophen 650 mg PO Q4H PRN PRN Reason: Pain Time of Disposition: 16:41 - Seen By: midlevel and physician
[2017-09-21 18:00] VITALS: BMI 54.0
[2017-09-21] MEDS ORDERED: PROMETHAZINE 25 MG INJECTION IVP PRN (18:15)
[2017-09-21] MEDS: LR 1,000 ML IV SCH (18:38)
[2017-09-21] MEDS: IBUPROFEN 200 MG TABLET PO PRN (18:45)
[2017-09-21] MEDS: PIPERACILLIN/TAZOBACTAM 3.375 GM in NS 100 ML IV SCH (18:55)
[2017-09-22] MEDS: PIPERACILLIN/TAZOBACTAM 3.375 GM in NS 100 ML IV SCH ×4 (01:16→18:13)
[2017-09-22] MEDS: MORPHINE SULFATE 10 MG SYRINGE IV PRN ×2 (01:29→06:15)
--- NOTE | 2017-09-22 10:16 | Anesthesia Preoperative Report ---
Anesthesia Preoperative Record - Date and Time Date: 09/22/17 Preoperative Diagnosis: abscess Proposed Procedure: I & D Left Axilla NPO Since Date: 09/21/17 NPO Since Time: 23:55 Allergies/Adverse Reactions: Allergies Allergy/AdvReac Type Severity Reaction Status Date / Time acetaminophen [From Lortab] Allergy Severe Hives Verified 09/21/17 15:56 hydrocodone [From Lortab] Allergy Severe Hives Verified 09/21/17 15:56 - Vital Signs Vital Signs: Temperature 101.0 F H 09/22/17 08:00 Pulse Rate 101 H 09/22/17 08:00 Respiratory Rate 16 09/22/17 08:00 Blood Pressure 122/67 09/22/17 08:00 Pulse Oximetry 92 09/22/17 08:00 Height and Weight: Height 5 ft 7 in Weight 156.6 kg Body Mass Index 54.0 - Medications Inpatient Medications: Current Medications Lactated Ringer's (Lactated Ringers) 1,000 mls @ 75 mls/hr IV .[id number] [facility] Last Infusion: 09/22/17 07:11 Dose: 75 mls/hr Piperacillin Sod/Tazobactam (Sod 3.375 gm/ Sodium Chloride) 100 mls @ 200 mls/ hr IV Q6H [facility] Last Infusion: 09/22/17 07:11 Dose: Infused Ibuprofen (Motrin) 400 - 800 mg PO Q6H PRN Last Admin: 09/21/17 18:45 Dose: 800 mg Morphine Sulfate (Morphine Sulfate Inj) 2 - 5 mg IV Q1H PRN PRN Reason: Pain Last Admin: 09/22/17 06:15 Dose: 5 mg Ondansetron HCl (Zofran) 4 - 8 mg IVP Q6H PRN PRN Reason: Nausea &/or vomiting Oxycodone HCl (Roxicodone *Ir*) 5 - 10 mg PO Q3H PRN PRN Reason: Pain Promethazine HCl (Phenergan Inj) 12.5 - 25 mg IVP Q6H PRN PRN Reason: Nausea &/or vomiting Home Medications: Home Medications Medication Instructions Recorded Confirmed Type Acetaminophen 650 mg PO Q4H PRN 09/21/17 09/21/17 History Ibuprofen 400 mg PO Q4H PRN 09/21/17 09/21/17 History Naproxen Sodium [Aleve] 1 cap PO BIDWM PRN 09/21/17 09/21/17 History Is Patient on Beta Caesar?: No - Medical History Respiratory: DENIES: Asthma, Bronchitis, Chronic Obstructive Pulmonary Disease (COPD), Dyspnea, Orthopnea, Pulmonary Embolism, Pneumonia, Upper Respiratory Infection, Pulmonary Edema, Sleep Apnea, Tuberculosis, Other Cardiovascular: DENIES: Abnormal EKG, Angina, Arrhythmia, Congestive Heart Failure, Coronary Artery Disease, Heart Murmur, Hypertension, Hypotension, High Cholesterol, Myocardial Infarction, Rheumatic Fever, Valvular Heart Disease, Other Gastrointestional: Reports: Morbid Obesity Neuro/Musculoskeletal: Denies: HX.MS.OSAR, Back Problems, Cerebrovascular Accident, Depression, Headaches, Loss of Consciousness, Muscle Weakness, Neuromuscular Disorder, Paralysis, Paresthesia, Syncope, Seizures, Other Renal/Endocrine: DENIES: Diabetes Mellitus Type 1, Diabetes Mellitus Type 2, Renal Failure, Dialysis, Thyroid Disease, Weight Loss, Weight Gain, Other - Surgical History Anesthesia Reactions: Nausea and Vomiting Hx Family Anesthesia Reaction: No History of Motion Sickness: No - Social History Smoking Status: Never smoker Hx Chewing Tobacco Use: No Second Hand Exposure: No Substance Use Type: does not use Alcohol Intake Frequency: does not drink - Pertinent Findings Laboratory: CBC and BMP 09/22/17 04:25 - Physical Exam Respiratory Exam: Present: lungs clear, bilateral breath sounds equal Cardiovascular Exam: Present: regular rate and rhythm, no murmur - Airway Assessment Teeth: poor dentation (missing upper incisors) - ASA ASA Score: 3, E - Plan Anesthesia: General TIVA - Discussion Discussion: Discussed risks/options/alternatives of anesthesia and questions answered. Patient consents. Nursing pain assessment noted. Present for Discussion: family member Attestation Statement: Prior to the delivery of any anesthetic medication, I examined the patient, developed the plan, obtained the patient's consent and discussed the risk and benefits of the procedure with the patient/guardian. - Additional Information Seen by Anesthesia: Yes
[2017-09-22] MEDS ORDERED: FentaNYL 100 MCG/2 ML INJECTION ONE ×2 (10:31→11:37)
[2017-09-22] MEDS ORDERED: PROPOFOL 500 MG/50 ML VIAL IV ONE ×2 (10:31→11:25)
[2017-09-22] MEDS ORDERED: KETAMINE 500 MG/10 ML INJECTION ONE (10:31)
[2017-09-22] MEDS ORDERED: BUPIVACAINE 0.25% (2.5mg/ml) PF 30ml INJECTION ONE ×2 (10:37→11:19)
[2017-09-22] MEDS ORDERED: LR 1,000 ML IV SCH (10:51)
[2017-09-22] MEDS: LR 1,000 ML IV SCH ×3 (11:03→21:34)
[2017-09-22] MEDS ORDERED: LIDOCAINE 2% (100mg/5mL) PF 5ml vl ONE (11:35)
[2017-09-22] MEDS ORDERED: BUPIVACAINE 0.25% (2.5mg/ml) PF 30ml INJECTION INFIL ONE (11:36)
[2017-09-22] MEDS ORDERED: GLYCOPYRROLATE 0.4 MG/2 ML INJECTION ONE (11:37)
[2017-09-22] MEDS ORDERED: ONDANSETRON 4 MG/2 ML INJECTION IVP PRN (12:00)
--- NOTE | 2017-09-22 12:01 | General Surgery Procedure Note ---
Date of Procedure: 09/22/17 Surgeon: Stephany Postoperative Diagnosis: Abscesses at left axilla and left lateral chest wall Procedure: Incision and drainage of abscesses at left axilla and left lateral chest wall Estimated Blood Loss: See Anesthesia Record.
--- NOTE | 2017-09-22 12:02 | Anesthesia Postoperative Note ---
- Date and Time Date: 09/22/17 Time: 12:02 - Status Patient Participated in Evaluation: Patient Participated in Person Vital Signs: Temperature 101.0 F H 09/22/17 08:00 Pulse Rate 101 H 09/22/17 08:00 Respiratory Rate 16 09/22/17 08:00 Blood Pressure 122/67 09/22/17 08:00 Pulse Oximetry 92 09/22/17 08:00 Respiratory Function: Airway Patent, Regular Respirations Cardiovascular Function: Regular Pulse EKG: Sinus Rhythm Mental Status: Alert and Oriented Pain Intensity: 6 (Dilaudid ordered) Hydration: IV Infusing Complications During Recover: None Apparent - Follow-Up Instructions Instructions: Per Surgeon
[2017-09-22] MEDS: HYDROMORPHONE 2 MG/ML INJECTION IVP PRN ×2 (12:04→12:18)
[2017-09-22] MEDS: ONDANSETRON 4 MG/2 ML INJECTION IVP PRN ×2 (12:58→16:25)
[2017-09-22] MEDS: Oxycodone *IR* 5 MG TABLET PO PRN ×2 (14:16→19:45)
[2017-09-22] MEDS ORDERED: SCOPOLAMINE 1.5 MG PATCH TD SCH (17:15)
[2017-09-23] MEDS: PIPERACILLIN/TAZOBACTAM 3.375 GM in NS 100 ML IV SCH ×5 (00:18→23:34)
[2017-09-23] MEDS: Oxycodone *IR* 5 MG TABLET PO PRN ×4 (02:57→23:33)
--- NOTE | 2017-09-23 07:37 | History and Physical ---
HISTORY OF PRESENT ILLNESS This patient is 37 years old. This patient noticed the presence of some lumps at the left axilla on 09/16/2017. These subcutaneous lumps at the left axilla have become larger and more tender each day since the patient first noticed these. The patient did notice that she had a fever on 09/18/2017 and on 2016. The patient has not had any medical treatment of these areas at the left axilla during this time. The patient did go to work on 09/21/2017. Her temperature was taken at work and she had a temperature of 104.8 degrees Fahrenheit. The patient did then come into [facility] Emergency Room for evaluation of these tender lumps at the left axilla. It was thought at the emergency room that the patient had some large abscesses at the left axilla which were too large to be drained under local anesthesia in an emergency room setting. The patient is admitted at this time for further management of these large subcutaneous abscesses and surrounding cellulitis at the left axilla. PAST MEDICAL HISTORY Previous Operations: 1. Primary section in 1997 at [facility] at [place], [place]. 2. Repeat section in 1999 at [facility] at [place], [place]. 3. Umbilical hernia repair through an incision along the left side of the umbilicus in 2003 at [facility] at [place], [place]. 4. Repeat section in 2004 at [facility] at [place], [place]. 5. Repeat section in 2007 at [facility] at [place], [place]. 6. Laparoscopic cholecystectomy in 2007 at [facility] at [place], [place]. 7. Repair of incisional hernia at midline vertically oriented lower abdominal incision and incidental appendectomy in 2012 or 2013 at [facility] at [place], [place]. 8. Repeat section in April 2016 at [facility] at [place], [place]. SOCIAL HISTORY The patient is . She lives in [place], [place]. She does not smoke cigarettes. 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 CURRENT MEDICATIONS None. ALLERGY HISTORY The patient states she is allergic to Lortab which causes hives. PHYSICAL EXAMINATION VITAL SIGNS: Temperature is 99.1 degrees Fahrenheit. Pulse is 103. Respiratory rate is 22. Blood pressure is 133/78. Oxygen saturation is 97% on room air. Height is 1.7 meters. Weight is 152.4 kg. BMI is 52.6 kg/m2. HEAD, EYES, EARS, NOSE AND THROAT: No abnormalities noted. NECK: No neck masses. CHEST: Lung sounds are clear. BREASTS: Not examined. HEART: Regular rhythm. No murmurs. AXILLAE: The patient does have a couple of large red, tender, fluctuant areas at the left axilla which look like subcutaneous abscesses with surrounding cellulitis. These are large. ABDOMEN: The patient has old laparoscopic cholecystectomy incision scars at the upper abdomen. There is a vertically oriented incision scar along the left side of the umbilicus. The patient has a midline vertically oriented abdominal incision scar at the lower abdomen. She had some of her section operations through this incision. The patient also has a Pfannenstiel abdominal incision scar and had a couple of her sections performed through the Pfannenstiel abdominal incision. No abdominal masses. No abdominal tenderness. RECTUM: Exam deferred. SKIN: No jaundice. EXTREMITIES: No abnormalities noted. LABORATORY DATA White blood cell count is 18,200 with 90% neutrophils and 6% lymphocytes. Hemoglobin is 11.7. Hematocrit is 36.5. Serum electrolytes are normal. Serum creatinine is 0.5. Serum glucose is 111. IMPRESSION 1. Several large subcutaneous abscesses at left axilla. 2. Cellulitis at left axilla. 3. Morbid obesity. PLAN 1. Admit patient to [facility] and begin intravenous antibiotic treatment for the cellulitis at the left axilla. 2. The patient will need to go to the operating room during this hospitalization for incision and drainage of the large subcutaneous abscesses at left axilla. The patient did just finish eating and drinking something, so she cannot be taken to the operating room immediately. After an appropriate period of the patient being n.p.o., she will be taken to the operating room to undergo incision and drainage of the large subcutaneous abscesses at the left axilla. Culture of these abscesses will be performed at that time. Antibiotic treatment will then be adjusted depending on the culture results. We will also then have some open wounds at the incision and drainage sites which will need to be managed. A plan for management of these open wounds will need to be developed during this hospitalization. NELI
--- NOTE | 2017-09-23 09:48 | Operative Note ---
DATE OF OPERATION 09/22/2017 PREOPERATIVE DIAGNOSIS Abscesses at left axilla and left lateral chest wall. POSTOPERATIVE DIAGNOSIS Abscesses at left axilla and left lateral chest wall. OPERATION Incision and drainage of abscesses at left axilla and left lateral chest wall. SURGEON Dr. Hammond [facility] CLASS 3E FINDINGS This patient did have a superficial subcutaneous abscess at the medial aspect of the left axilla. This abscess had undergone spontaneous rupture and had developed active drainage during the night prior to the operation. The patient had a much larger, deeper abscess at the lateral aspect of the left axilla. This was at the lateral inferior aspect of the left axilla. There was bulging of the skin and fluctuance at this area. There was an abscess deep in the axilla at the lateral inferior aspect of the axilla. This would be at the posterior inferior aspect of the left axilla. The patient had a large abscess at the left lateral chest wall inferior to the left axilla. This was a deep abscess between the muscles of the chest wall and the subcutaneous tissue. This patient is morbidly obese and has a very thick subcutaneous tissue layer. The larger abscess at the left axilla at the lateral inferior aspect of the left axilla and the abscess at the left lateral chest wall inferior to the axilla communicated with one another through a tunnel. There was a large amount of pus in the abscess at left axilla and at the abscess at the left lateral chest wall and within the tunnel which connected these two abscesses to one another. It did look as if an abscess had originated at the left axilla and then tunneled inferiorly from there out of the axilla and down into the left lateral chest wall inferior to the axilla. All of these abscesses were filled with pus. There was cellulitis of skin and subcutaneous tissue around the abscesses. DESCRIPTION OF OPERATION The patient was placed in supine position on the operating table. The patient was premedicated with intravenous sedation medication administered by the nurse passenger coach driver. The left axilla was prepped and draped in routine sterile fashion. Skin and subcutaneous tissue overlying the smaller, more superficial abscess at the medial anterior aspect of the left axilla were infiltrated with bupivacaine 0.25% without epinephrine. Local anesthesia was achieved at this area. An elliptical incision was made with scalpel overlying this abscess. This was the abscess which had already started spontaneously draining. The elliptical incision was made around the drainage opening. An ellipse of skin and subcutaneous tissue was excised to unroof this abscess. Specimens of pus within the abscess were collected with culture swabs for culture and sensitivity studies. All the pus was evacuated out of this superficial subcutaneous abscess. Hemostasis was then achieved at the incision and drainage site by coagulating bleeding points at the margins of the incision and drainage site with the monopolar electrosurgery device. Satisfactory hemostasis was achieved. All of the pus was evacuated out of the abscess. There was concern at this point that there might be an abscess at the left lateral chest wall inferior to the axilla. This area at the left lateral chest wall was aspirated with a syringe and 18-gauge needle and pus was able to be aspirated from the deep subcutaneous tissue level at the left lateral chest wall inferior to the left axilla at this time. This specimen of pus was submitted for culture and sensitivity studies. Attention was directed to the area bulging and fluctuance at the inferior lateral aspect of the left axilla. Bupivacaine 0.25% without epinephrine was infiltrated into skin and subcutaneous tissue overlying this abscess. An ellipse of skin and subcutaneous tissue was then excised with scalpel to unroof this abscess at the left axilla. Specimens of pus from within the abscess were collected with a culture swab at this time for culture and sensitivity studies. Pus was evacuated out of this abscess at the lateral inferior aspect of the left axilla. Exploration of this abscess with a sterile gloved fingertip did reveal that it did communicate through a tunnel with the abscess at the left lateral chest wall. Pus was evacuated out of this abscess. Hemostasis was achieved at the incision and drainage site at this abscess by coagulation of bleeding points with the monopolar electrosurgery device. A 4-cm long incision had been made overlying the superficial abscess at the medial aspect of the left axilla. A 5-cm long incision had been made over the deeper larger abscess at the lateral inferior aspect of the left axilla. Attention was then directed to draining the abscess at the left lateral chest wall inferior to the level of the left axilla. Skin and subcutaneous tissue overlying this abscess were infiltrated with bupivacaine 0.25% without epinephrine. The patient also continued to receive intravenous sedation medication administered by the nurse passenger coach driver throughout all this time. An elliptical incision was made overlying the abscess at the left lateral chest wall. This was an 8 cm long elliptical incision. An ellipse of skin and subcutaneous tissue was excised to unroof this abscess. Pus was evacuated out of this abscess at the left lateral chest wall. Hemostasis was then achieved at margins of this incision and drainage site wound by coagulating bleeding points with the monopolar electrosurgery device. One [id number] hemostatic stitch was also placed using 3-0 Vicryl suture. Satisfactory hemostasis was achieved at this incision and drainage site at the left lateral chest wall. Exploration of this deep abscess at the left lateral chest wall did confirm that it connected by a tunnel with the abscess at the left axilla. Hemostasis was satisfactory at all three incision and drainage site wounds. Each of these three wounds was then packed open with normal saline soaked 3-inch wide Parker gauze type dressing. Dry 4 x 4 gauze dressing was placed over this. ABD dressing was placed over this. Tape was used to hold the dressings in place. Sponge, needle and instrument counts were all correct. The patient did continue to receive intravenous sedation medication administered by the nurse passenger coach driver throughout the operation to maintain patient comfort. The patient did appear to tolerate the operation well. The patient was transferred from the operating room to the recovery room in satisfactory condition. NELI
[2017-09-23] MEDS: LR 1,000 ML IV SCH ×2 (12:22→23:34)
[2017-09-23] MEDS: MORPHINE SULFATE 10 MG SYRINGE IV PRN (13:58)
--- NOTE | 2017-09-23 16:21 | Progress Note ---
DATE 09/23/2017 POSTOP DAY #1 HISTORY The patient is doing well. The patient has been seen by Ayana Logan today from the [facility] and has had her wounds evaluated. We do plan to have Ayana place some type of wound VAC device on the wounds today. The patient is receiving intravenous Zosyn while final culture and sensitivity results are awaited. She is receiving intravenous Zosyn every six hours. PHYSICAL EXAMINATION VITAL SIGNS: Temperature is 98.9 degrees Fahrenheit oral. Pulse is 79. Respiratory rate is 18. Blood pressure is 133/75. Oxygen saturation is 94% on room air. AXILLA: The two open wounds at the left axilla have a satisfactory appearance. CHEST: The open wound at the left lateral chest wall inferior to the axilla has a satisfactory appearance. LABORATORY DATA White blood cell count is 18,500 with 2 bands today. Hemoglobin is 9.5. Hematocrit is 30.7. Cultures of pus from the abscesses at the left axilla and the left lateral chest wall are all growing out Staphylococcus aureus. Final culture and sensitivity results are awaited. IMPRESSION 1. Doing well following incision and drainage of abscesses at left axilla and left lateral chest wall on 09/22/2017. 2. Cellulitis at left axilla and left lateral chest wall. 3. Morbid obesity. 4. Anemia. PLAN 1. Continue intravenous Zosyn antibiotic treatment for now. 2. Await final culture and sensitivity report on the abscess contents of the left axilla and left lateral chest wall. After these results have been returned , antibiotic treatment will be adjusted based on the culture and sensitivity reports. 3. Continue to monitor temperature and white blood cell count. 4. Ayana Logan is going to apply a wound VAC device to the open wound at the left axilla and left lateral chest wall today. We may apply an Instill VAC type of wound VAC device. When the patient is discharged from the hospital she will transition to follow up at the [facility] for healing of these open incision and drainage site wounds at the left axilla and the left lateral chest wall. 5. Continue sequential compression devices for deep venous thrombosis prophylaxis. [facility]
--- NOTE | 2017-09-23 16:47 | Wound Care Progress Note ---
Wound Management - Wound Left Medial Arm Wound Type: Surgical Incision (Medial Axilla) Wound Present on Admission?: Yes Length: 3.8 Width: 0.8 Depth: 1.8 Wound Bed Appearance: Beefy Red, Slough Rose Mary Wound Appearance: Edematous-pitting Tunneling: No Undermining: No Drainage Description: Serosanguineous Drainage Amount: Moderate Drainage Odor: No Odor Dressing Status: Changed Packing Type: Woundvac Sponge Number of Packing Pieces Placed?: 2 Primary Dressing: Transparent Drape Secondary Dressing: Trac Pad Dressing Change Date: 09/23/17 Dressing Change Time: 16:46 Dressing Change Patient Tolerance: Tolerated Well Microbiology: Microbiology 09/22/17 11:00 Arm, Left Upper Gram Stain - Final 09/22/17 11:00 Arm, Left Upper Surgical Culture - Preliminary Staphylococcus aureus 09/22/17 11:14 Arm, Left Upper Gram Stain - Final 09/22/17 11:14 Arm, Left Upper Surgical Culture - Preliminary Staphylococcus aureus 09/22/17 11:18 Arm, Left Upper Gram Stain - Final 09/22/17 11:18 Arm, Left Upper Surgical Culture - Preliminary Staphylococcus aureus Left Lateral Arm Wound Type: Surgical Incision (Left lateral Axmilla) Wound Present on Admission?: Yes Length: 1 Width: 3 Depth: 3 Wound Bed Appearance: Beefy Red, Slough Rose Mary Wound Appearance: Edematous-pitting Tunneling: No Undermining: No Drainage Description: Serosanguineous Dressing Status: Changed Packing Type: Woundvac Sponge Number of Packing Pieces Placed?: 2 Primary Dressing: Transparent Drape Secondary Dressing: Transparent Drape, Trac Pad Dressing Change Date: 09/23/17 Dressing Change Time: 16:48 Dressing Change Patient Tolerance: Tolerated Well Microbiology: Microbiology 09/22/17 11:00 Arm, Left Upper Gram Stain - Final 09/22/17 11:00 Arm, Left Upper Surgical Culture - Preliminary Staphylococcus aureus 09/22/17 11:14 Arm, Left Upper Gram Stain - Final 09/22/17 11:14 Arm, Left Upper Surgical Culture - Preliminary Staphylococcus aureus 09/22/17 11:18 Arm, Left Upper Gram Stain - Final 09/22/17 11:18 Arm, Left Upper Surgical Culture - Preliminary Staphylococcus aureus Left Arm Wound Present on Admission?: Yes Length: 3 Width: 8 Depth: 5.2 Tunneling Location (o'clock): 11 (5.2 cm) Wound Bed Appearance: Beefy Red, Slough Tunneling: Yes (3 oclock 3.5) Undermining: No Drainage Description: Serosanguineous Drainage Amount: Moderate Drainage Odor: No Odor Dressing Status: Changed Packing Type: Woundvac Sponge Number of Packing Pieces Placed?: 3 Primary Dressing: Transparent Drape Secondary Dressing: Trac Pad (Pt has instill vac of NS instilling at 36 cc every 3.5 hours to dwell for 20mins.) Dressing Change Date: 09/23/17 Dressing Change Time: 16:50 Microbiology: Microbiology 09/22/17 11:00 Arm, Left Upper Gram Stain - Final 09/22/17 11:00 Arm, Left Upper Surgical Culture - Preliminary Staphylococcus aureus 09/22/17 11:14 Arm, Left Upper Gram Stain - Final 09/22/17 11:14 Arm, Left Upper Surgical Culture - Preliminary Staphylococcus aureus 09/22/17 11:18 Arm, Left Upper Gram Stain - Final 09/22/17 11:18 Arm, Left Upper Surgical Culture - Preliminary Staphylococcus aureus
[2017-09-24] MEDS: PIPERACILLIN/TAZOBACTAM 3.375 GM in NS 100 ML IV SCH (06:20)
[2017-09-24] MEDS: Oxycodone *IR* 5 MG TABLET PO PRN ×2 (09:40→18:20)
[2017-09-24] MEDS: IBUPROFEN 200 MG TABLET PO PRN (16:30)
[2017-09-24] MEDS ORDERED: IBUPROFEN 400 MG TABLET PO PRN (16:30)
--- NOTE | 2017-09-24 18:28 | Progress Note ---
DATE 09/24/2017 POSTOP DAY #2 HPI The patient did have an Instill VAC applied to the open wound at the left axilla and the left lateral chest wall yesterday by Ernestina Logan RN. The patient is tolerating the Instill VAC well. PHYSICAL EXAMINATION VITAL SIGNS: Temperature is 97.5 degrees oral. Pulse is 79. Respiratory rate is 18. Blood pressure is 117/94. Oxygen saturation is 95% on room air. AXILLA: The patient does have the Instill VAC dressings in place at the left axilla. CHEST: The patient has Instill VAC dressings in place at the left lateral chest wall. LABORATORY DATA White blood cell count is 12,200 with no bands today. Hemoglobin is 8.8. Hematocrit is 28.9. Cultures of pus drained from the left axilla and the left lateral chest wall on 09/22/2017 have now grown out MRSA. Sensitivities for the MRSA are available. IMPRESSION 1. Doing well following incision and drainage of MRSA abscesses at left axilla and left lateral chest wall on 09/22/2017. 2. Cellulitis of left axilla and left lateral chest wall. 3. Morbid obesity. 4. Anemia. PLAN 1. Discontinue intravenous Zosyn antibiotic treatment today. Treatment with oral Bactrim DS tablets will begin today. 2. Recheck white blood cell count tomorrow. 3. Arrangements are being made for the patient to have an Instill VAC type of wound VAC device available for use at the open wound at the left axilla and left lateral chest wall following discharge from the hospital. Case Management is working on application for an Instill VAC type of wound VAC device for the patient at this time. It is anticipated that when the patient is discharged from the hospital that she will transition to followup at [facility] for care of the open wounds at the left axilla and left lateral chest wall. 4. Continue sequential compression devices for deep venous thrombosis prophylaxis. NELI
[2017-09-24] MEDS: SULFAMETHOXAZOLE/TMP 800 MG/160 MG DS TABLET PO SCH (20:34)
[2017-09-25] MEDS: Oxycodone *IR* 5 MG TABLET PO PRN ×2 (03:35→08:45)
[2017-09-25] MEDS: MORPHINE SULFATE 10 MG SYRINGE IV PRN (08:44)
[2017-09-25] MEDS: SULFAMETHOXAZOLE/TMP 800 MG/160 MG DS TABLET PO SCH (08:45)
--- NOTE | 2017-09-25 12:06 | Discharge Instructions ---
Discharge Plan - Med Rec/Dispo Prescriptions: Continue Ibuprofen 400 mg PO Q4H PRN PRN Reason: Pain Naproxen Sodium [Aleve] 1 cap PO BIDWM PRN PRN Reason: Pain Acetaminophen 650 mg PO Q4H PRN PRN Reason: Pain
[2017-09-25 12:21] VITALS: BP 135/81; PULSE 76; RESP 18; TEMP 96.5; O2SAT 92
--- NOTE | 2017-09-25 13:31 | Wound Care Progress Note ---
Wound Management - Wound Left Arm Wound Type: Surgical Incision (Left axillia Superior) Wound Present on Admission?: Yes Wound Bed Appearance: Beefy Red, Teran, Slough Rose Mary Wound Appearance: Buckshot Tunneling: No Undermining: No Drainage Description: Serosanguineous Drainage Amount: Moderate Drainage Odor: Slight Odor Dressing Status: Changed Packing Type: Woundvac Sponge Number of Packing Pieces Removed?: 2 Number of Packing Pieces Placed?: 1 Primary Dressing: Transparent Drape Secondary Dressing: Trac Pad Dressing Change Date: 09/25/17 Dressing Change Time: 11:00 Dressing Change Patient Tolerance: Tolerated Well Left Distal Arm Wound Present on Admission?: Yes Length: 3 Width: 8 Depth: 5.2 Wound Bed Appearance: Beefy Red, Pale, Slough Rose Mary Wound Appearance: Buckshot Tunneling: Yes (11 oclock 5.2cm/ 3 oclock 3.5cn) Undermining: No Drainage Description: Serosanguineous Drainage Amount: Moderate Drainage Odor: Slight Odor Dressing Status: Changed Packing Type: Woundvac Sponge Number of Packing Pieces Removed?: 2 Number of Packing Pieces Placed?: 2 Primary Dressing: Transparent Drape Secondary Dressing: Trac Pad Dressing Change Date: 09/25/17 Dressing Change Time: 11:00 Dressing Change Patient Tolerance: Tolerated Well (Distal area of axillia) Left Lateral Chest Wound Type: Surgical Incision (Lateral chest wall very near axillia) Wound Present on Admission?: Yes Length: 3.8 Width: 0.8 Depth: 1.8 Wound Bed Appearance: Beefy Red, Slough Rose Mary Wound Appearance: Buckshot Tunneling: No Undermining: No Drainage Description: Serosanguineous Drainage Amount: Moderate Drainage Odor: Slight Odor Dressing Status: Changed Packing Type: Woundvac Sponge Number of Packing Pieces Removed?: 2 Number of Packing Pieces Placed?: 2 Primary Dressing: Transparent Drape Secondary Dressing: Trac Pad Dressing Change Date: 09/25/17 Dressing Change Time: 11:00
--- NOTE | 2017-09-25 13:48 | Progress Note ---
DATE 09/25/2017 POSTOP DAY #3 HISTORY PRESENT ILLNESS The patient is doing well. She did have her Instill VAC wound care dressing changed by Ernestina Logan RN this morning. Ayana reports that the wounds at the axilla and left lateral chest wall looked good time at the time of the dressing change. The patient is using oxycodone for pain control. PHYSICAL EXAMINATION VITAL SIGNS: Temperature is 96.3 degrees Fahrenheit oral. Pulse is 73. Blood pressure is 122/79. Oxygen saturation is 95% on room air. AXILLAE: The patient has an Instill VAC dressing in place at the open wounds at the left axilla. CHEST: The patient has an Instill VAC wound care dressing in place at the open wound at the left lateral chest wall. LABORATORY DATA White blood cell count is 9300 with no bands this morning. Hemoglobin is 9.1. Hematocrit is 29.9. IMPRESSION 1. Doing well following incision and drainage of MRSA abscesses at the left axilla and left lateral chest wall on 09/22/2017. 2. Resolving cellulitis at left axilla and left lateral chest wall. 3. Morbid obesity. 4. Anemia. PLAN 1. Dismiss patient from [facility] today. 2. Continue Bactrim DS 1 tablet p.o. b.i.d. 3. Arrangements have been made for the patient to follow up at [facility] for Instill VAC dressing changes after discharge from the hospital. The patient will have her next dressing change at [facility] on 09/30/2017. The patient will be followed by Dr. Hammond at [facility]. DISCHARGE MEDICATIONS 1. Bactrim DS 1 tablet p.o. b.i.d. (dispense 18 - no refills). 2. Oxycodone 5 mg 1-2 tablets p.o. every 4 hours p.r.n. pain (dispense 40 - no refills). 3. Acetaminophen 325 mg 1-2 tablets p.o. every 5 hours p.r.n. pain. 4. Ibuprofen 200 mg 2-4 tablets p.o. every 6 hours p.r.n. pain. MTDD
[2017-09-25] MEDS ORDERED: SCOPOLAMINE PATCH REMOVAL TD SCH (17:15)
--- NOTE | 2017-09-30 09:31 | Discharge Summary ---
DISCHARGE DIAGNOSES 1. MRSA abscesses at left axilla and left lateral chest wall. 2. Cellulitis at the left axilla and left lateral chest wall. 3. Sepsis. 4. Morbid obesity with BMI of 52.6. 5. Anemia. OPERATION Incision and drainage of abscesses at left axilla and left lateral chest wall on 09/22/2017. HOSPITAL COURSE This patient was admitted to [facility] by Dr. Hammond on the evening of 09/21/2017. History and physical examination at the time of admission to the hospital can be found in the dictated admission history and physical examination report in the chart. At the time of admission to the hospital, the patient had a white blood cell count of 18,200 with 90% neutrophils and 6% lymphocytes. Hemoglobin was 11.7. The patient was noted to have some mild anemia at the time of admission to the hospital. Hematocrit was 36.5. The patient was admitted with a principal admission diagnosis of several large subcutaneous abscesses at left axilla. The patient also had cellulitis at the left axilla. The patient was known at the time of admission to the hospital to have morbid obesity with a BMI of 52.6 kg/m2. The patient was started on intravenous antibiotic treatment for the cellulitis at the left axilla at the time of admission to the hospital. The patient was started on intravenous antibiotic treatment with intravenous Zosyn. It was thought that the patient would need to go to the operating room for incision and drainage of the large subcutaneous abscess of the left axilla. The patient had just had something to eat and drink prior to arrival at the emergency room so she could not be taken to the operating room immediately. The patient was made NPO so that she could be taken to the operating room after an appropriate period of being NPO Sequential compression devices for deep venous thrombosis prophylaxis were started at the time of admission to the hospital. The patient did have a temperature of 101 degrees Fahrenheit oral at 0800 hours on 09/22/2017 preoperatively. The patient had a white blood cell count of 20, 500 with 1 band preoperatively on 09/21/2017. The patient was taken to the operating room on the morning of 09/22/2017 after an appropriate period of being NPO. The patient did undergo incision and drainage of abscesses at the left axilla and the left lateral chest wall on the morning of 09/22/2017. Details of operative findings can be found in the dictated operative report in the chart. The patient had two abscesses at the left axilla. The patient had an abscess at the left lateral chest wall. The large deep abscess at the left axilla and the large deep abscess at the left lateral chest wall did communicate with one another. The abscess cavity incision and drainage sites were packed open with normal saline-soaked gauze dressings at the time of the operation. The patient continued to receive intravenous Zosyn postoperatively. On 09/23/2017, the patient was seen by Ernestina Logan RN, from the [facility] for evaluation of her open wounds. The patient did have an Instill VAC device applied to the open wounds at the left axilla and left lateral chest wall by Ernestina Logan RN, on 09/23/2017. Intravenous Zosyn was continued at this time. White blood cell count was 18, 500 with 2 bands on the first postoperative day. Hemoglobin was 9.5. Hematocrit was 30.7. Cultures of pus from the abscess at the left axilla and left lateral chest wall were growing out staphylococcus aureus at this time. Final culture and sensitivity results were awaited. The patient continued to receive Zosyn intravenous antibiotics every 6 hours while the final culture and sensitivity results were being awaited. Sequential compression devices were continued for deep venous thrombosis prophylaxis. On 09/24/2017, the patient was tolerating her Instill VAC well. White blood cell count was 12,200 with no bands at this time. Hemoglobin was 8.8. Hematocrit was 28.9. Cultures of pus drained from the left axilla and the left lateral chest wall on 09/22/2017 were now growing out MRSA. Sensitivity results for the MRSA were available at this time. The Zosyn intravenous antibiotic treatment was discontinued at this time. Treatment with oral Bactrim DS tablets was started at this time. Sequential compression devices were continued for deep venous thrombosis prophylaxis. Arrangements were being made at this time for the patient to have an Instill VAC type of wound VAC device available for use at the open wounds at the left axilla and the left lateral chest wall following discharge from the hospital. Case Management was working on application for the Instill VAC type of device for the patient at this time. The patient did have her Instill VAC wound care dressing changed by Ernestina Logan RN, on the morning of 09/25/2017. The wounds at the left lateral chest wall and left axilla did look good at this time. The patient was using oxycodone for pain control. The patient was now afebrile. White blood cell count was 9300 with no bands on the morning of 09/25/2017. Hemoglobin was 9.1. Hematocrit was 29.9. The cellulitis at the left axilla and left lateral chest wall appeared to be resolving. The patient was dismissed from [facility] on 09/25/2017. Arrangements were made at the time of discharge from the hospital for the patient to have followup at [facility] for Instill VAC dressing changes. DISCHARGE MEDICATIONS 1. Bactrim DS 1 tablet p.o. b.i.d. (dispense 18 - no refills). 2. Oxycodone 5 mg 1-2 tablets p.o. every 4 hours p.r.n. pain (dispense 40 - no refills). 3. Acetaminophen 325 mg 1-2 tablets p.o. every 5 hours p.r.n. pain. 4. Ibuprofen 200 mg 2-4 tablets p.o. every 6 hours p.r.n. pain. DISCHARGE DISPOSITION 1. The patient did have an appointment made at the time of discharge from the hospital for her to follow up at [facility] on 09/30/2017 for an Instill VAC dressing change. 2. Plans were made for the patient to have followup by Dr. Hammond at [facility]. NELI
== END 2017-09-25 16:12 | disposition home health service (06) | DRG 872 ==
LOC: ED 15:36 → SRG 15:36
PROVIDERS: ADMIT Surgery; ATTEND Surgery